=== PATIENT | female | born 1930 | race Caucasian/White ===

== ENCOUNTER 2016-07-08 06:29 | Inpatient (IN) | payer MEDICARE ==
[~2016-07-08] VITALS: Ht 157.5 cm; Wt 54.9 kg
[~2016-07-08 06:29] MED LIST: AMLO5TAB4 PO; ASPI-252 PO; CHOL10003 PO; LOSA100T6 PO; LOSA50TA6 PO; METO25TA4 PO; TRAM50TA PO; Tizanidine Hcl PO
[2016-07-08 06:55] LABS: BILIRUBIN,URINE NEGATIVE (NEG); GLUCOSE,URINE NEGATIVE (NEG); NITRITE,URINE NEGATIVE (NEG); PH,URINE 7.5; PROTEIN,URINE NEGATIVE (NEG-TRACE); UROBILINOGEN,URINE 0.2 mg/dL (0.2 mg/dL)
[2016-07-08 06:58] LABS: BASO # 0.1 x10^3/uL (0.0-0.2); BASO % 1 % (0-3); EOS % 4 % (0-3); HEMATOCRIT 40.3 % (36.0-47.0); HEMOGLOBIN 13.1 g/dL (12.0-15.5); LYMPH # 1.9 x10^3/uL (1.0-4.8); LYMPH % 22 % (24-48); MEAN CORPUSCULAR HEMOGLOBIN 28 pg (25-35); MEAN CORPUSCULAR HGB CONC 33 g/dL (31-37); MEAN CORPUSCULAR VOLUME 88 fL (79-100); MONO % 8 % (0-9); NEUT % 65 % (31-73); PLATELET COUNT 215 x10^3/uL (140-400); RED BLOOD COUNT 4.61 x10^6/uL (3.50-5.40); RED CELL DISTRIBUTION WIDTH 14.6 % (11.5-14.5); WHITE BLOOD COUNT 8.7 x10^3/uL (4.0-11.0)
[2016-07-08] MEDS ORDERED: DIAZEPAM 5 MG TABLET PO ONE (07:00)
[2016-07-08] MEDS ORDERED: IV NORMAL SALINE 500ML BAG 500 ML IV ONE (07:00)
[2016-07-08] MEDS ORDERED: ONDANSETRON PF 4 MG/2 ML VIAL. IV ONE (07:00)
[2016-07-08 07:06] LABS: CALCIUM 9.7 mg/dL (8.5-10.1); CREATININE 0.9 mg/dL (0.6-1.0); GFR 59.5; POTASSIUM 3.9 mmol/L (3.5-5.1)
[2016-07-08 07:10] LABS: ALBUMIN 3.8 g/dL (3.4-5.0); ALBUMIN/GLOBULIN RATIO 1.3 (1.0-1.7); TOTAL BILIRUBIN 0.7 mg/dL (0.2-1.0); TOTAL PROTEIN 6.7 g/dL (6.4-8.2)
[2016-07-08 07:20] LABS: BACTERIA,URINE 0 /HPF (0-FEW); RBC,URINE 0 /HPF (0-2); SQUAMOUS EPITHELIAL CELL,UR FEW /LPF; WBC,URINE 0 /HPF (0-4)
--- NOTE | 2016-07-08 07:53 | RAD ---
CT of the head without contrast, 07/08/2016: History: Dizziness. Comparison is made to a study from 09/09/2015. A radiopaque device implanted in the scalp in the left temporal/occipital region is reportedly a cochlear implant. Associated artifacts degrade image quality in this region. There is also motion artifact present. There is mild cerebral atrophy. There are moderate patchy lucencies in the deep white matter bilaterally compatible with chronic ischemic change. The ventricles are within normal limits in size. There is no shift of the midline structures. There is no evidence of acute intracranial hemorrhage or mass effect. There is calcific plaquing of the distal internal carotid and vertebral arteries. IMPRESSION: 1. Chronic findings as described above. 2. No acute intracranial abnormality is detected. PQRS Compliance Statement: One or more of the following individualized dose reduction techniques were utilized for this examination: 1. Automated exposure control 2. Adjustment of the mA and/or kV according to patient size 3. Use of iterative reconstruction technique
--- NOTE | 2016-07-08 07:58 | EKG ---
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
--- NOTE | 2016-07-08 10:10 | PHYS DOC ---
Past Medical History Past Medical History: Cancer, High Cholesterol, Hypertension, Other Additional Past Medical Histor: breast cancer Past Surgical History: Other Additional Past Surgical Histo: cochlear implant,lt breast lumpectomy,ectopic Alcohol Use: None Drug Use: None Adult General Chief Complaint Chief Complaint: NAUSEA/VOMITING/DIARRHA HPI HPI 85-year-old female presents with several hour history of severe dizziness. She states any time she moves her head she becomes nauseous. She states she's vomited several times. She denies any headache or lateralizing neurologic weakness. She states she's never had this problem before. She does state that she saw her family doctor approximately one week ago. [] Review of Systems Review of Systems Constitutional: Denies fever or chills [] Eyes: Denies change in visual acuity, redness, or eye pain [] HENT: Denies nasal congestion or sore throat [] Respiratory: Denies cough or shortness of breath [] Cardiovascular: No additional information not addressed in HPI [] GI: Denies abdominal pain, nausea, vomiting, bloody stools or diarrhea [] : Denies dysuria or hematuria [] Musculoskeletal: Denies back pain or joint pain [] Integument: Denies rash or skin lesions [] Neurologic: Per history of present illness [] Endocrine: Denies polyuria or polydipsia [] Current Medications Current Medications Current Medications Medications (Trade) Dose Ordered Sig/Phani Start Time Stop Time Status Last Admin Dose Admin Diazepam (Valium) 2.5 mg 1X ONCE 07/08/16 07:00 07/08/16 07:01 DC 07/08/16 07:01 2.5 MG Meclizine HCl (Antivert) 25 mg Q8HRS PRN 07/08/16 10:15 UNV Ondansetron HCl (Zofran) 4 mg 1X ONCE 07/08/16 07:00 07/08/16 07:01 DC 07/08/16 07:01 4 MG Ondansetron HCl 4 mg 4 mg PRN Q8HRS PRN 07/08/16 10:15 07/09/16 10:14 UNV Sodium Chloride (Iv Sodium Chloride 0.9% 500ml Bag) 500 ml @ 500 mls/hr 1X ONCE 07/08/16 07:00 07/08/16 07:59 DC 07/08/16 07:01 500 MLS/HR Sodium Chloride (Iv Sodium Chloride 0.9% 1000ml Bag) 1,000 ml @ 125 mls/hr Q8H 07/08/16 10:02 07/09/16 10:01 UNV Allergies Allergies Allergies Coded Allergies Type Severity Reaction Last Updated Verified codeine Allergy Intermediate 09/11/15 Yes Physical Exam Physical Exam Constitutional: Well developed, well nourished, no acute distress, non-toxic appearance. [] HENT: Normocephalic, atraumatic, bilateral external ears normal, oropharynx moist, no oral exudates, nose normal. [] Eyes: PERRLA, EOMI, conjunctiva normal, no discharge. [] Neck: Normal range of motion, no tenderness, supple, no stridor. [] Cardiovascular:Heart rate regular rhythm, no murmur [] Lungs & Thorax: Bilateral breath sounds clear to auscultation [] Abdomen: Bowel sounds normal, soft, no tenderness, no masses, no pulsatile masses. [] Skin: Warm, dry, no erythema, no rash. [] Back: No tenderness, no CVA tenderness. [] Extremities: No tenderness, no cyanosis, no clubbing, ROM intact, no edema. [] Neurologic: Alert and oriented X 3, normal motor function, normal sensory function, no focal deficits noted. Positive Gallito-Hallpike [] Psychologic: Affect normal, judgement normal, mood normal. [] Current Patient Data Vital Signs Vital Signs Date Time Temp Pulse Resp B/P Pulse Ox O2 Delivery O2 Flow Rate FiO2 07/08/16 07:00 72 26 170/74 97 Room Air 07/08/16 06:48 97.8 97.8 Lab Values Laboratory Tests Test 07/08/16 06:35 07/08/16 06:42 Urine Collection Type Unknown Urine Color Yellow Urine Clarity Clear Urine pH 7.5 Urine Specific [place] <=1.005 Urine Protein Negativemg/dL (NEG-TRACE) Urine Glucose (UA) Negativemg/dL (NEG) Urine Ketones (Stick) Negativemg/dL (NEG) Urine Blood Negative (NEG) Urine Nitrite Negative (NEG) Urine Bilirubin Negative (NEG) Urine Urobilinogen Dipstick 0.2mg/dL (0.2 mg/dL) Urine Leukocyte Esterase Small (NEG) Urine RBC 0/HPF (0-2) Urine WBC 0/HPF (0-4) Urine Squamous Epithelial Cells Few/LPF Urine Bacteria 0/HPF (0-FEW) White Blood Count 8.7x10^3/uL (4.0-11.0) Red Blood Count 4.61x10^6/uL (3.50-5.40) Hemoglobin 13.1g/dL (12.0-15.5) Hematocrit 40.3% (36.0-47.0) Mean Corpuscular Volume 88fL (79-100) Mean Corpuscular Hemoglobin 28pg (25-35) Mean Corpuscular Hemoglobin Concent 33g/dL (31-37) Red Cell Distribution Width 14.6% (11.5-14.5) H Platelet Count 215x10^3/uL (140-400) Neutrophils (%) (Auto) 65% (31-73) Lymphocytes (%) (Auto) 22% (24-48) L Monocytes (%) (Auto) 8% (0-9) Eosinophils (%) (Auto) 4% (0-3) H Basophils (%) (Auto) 1% (0-3) Neutrophils # (Auto) 5.6x10^3uL (1.8-7.7) Lymphocytes # (Auto) 1.9x10^3/uL (1.0-4.8) Monocytes # (Auto) 0.7x10^3/uL (0.0-1.1) Eosinophils # (Auto) 0.3x10^3/uL (0.0-0.7) Basophils # (Auto) 0.1x10^3/uL (0.0-0.2) Sodium Level 139mmol/L (136-145) Potassium Level 3.9mmol/L (3.5-5.1) Chloride Level 101mmol/L (98-107) Carbon Dioxide Level 28mmol/L (21-32) Anion Gap 10 (6-14) Blood Urea Nitrogen 21mg/dL (7-20) H Creatinine 0.9mg/dL (0.6-1.0) Estimated GFR (Cockcroft-Gault) 59.5 BUN/Creatinine Ratio 23 (6-20) H Glucose Level 123mg/dL (70-99) H Calcium Level 9.7mg/dL (8.5-10.1) Total Bilirubin 0.7mg/dL (0.2-1.0) Aspartate Amino Transferase (AST) 16U/L (15-37) Alanine Aminotransferase (ALT) 18U/L (14-59) Alkaline Phosphatase 100U/L (46-116) Troponin I Quantitative < 0.017ng/mL (0.000-0.055) Total Protein 6.7g/dL (6.4-8.2) Albumin 3.8g/dL (3.4-5.0) Albumin/Globulin Ratio 1.3 (1.0-1.7) Laboratory Tests 07/08/16 06:42 Laboratory Tests 07/08/16 06:42 EKG EKG [] Interpretation Time: EKG: Normal sinus rhythm rate of [address]-T changes Radiology/Procedures Radiology/Procedures [] Impressions: PROCEDURE: HEAD WO CONTRAST CT of the head without contrast, 07/08/2016: History: Dizziness. Comparison is made to a study from 09/09/2015. A radiopaque device implanted in the scalp in the left temporal/occipital region is reportedly a cochlear implant. Associated artifacts degrade image quality in this region. There is also motion artifact present. There is mild cerebral atrophy. There are moderate patchy lucencies in the deep white matter bilaterally compatible with chronic ischemic change. The ventricles are within normal limits in size. There is no shift of the midline structures. There is no evidence of acute intracranial hemorrhage or mass effect. There is calcific plaquing of the distal internal carotid and vertebral arteries. IMPRESSION: 1. Chronic findings as described above. 2. No acute intracranial abnormality is detected. Course & Med Decision Making Course & Med Decision Making Pertinent Labs and Imaging studies reviewed. (See chart for details) [ED course: Evaluation reveals an 85-year-old female with likely vertiginous type symptoms. She had a CT scan that did not show any acute stroke. She was given IV fluids, meclizine and Valium during her stay in the department this did help alleviate her symptoms however she remained symptomatic with any head movement. At this point I feel like it's in the patient's best interest to be monitored in the hospital. I spoke with Dr. To who agrees and will except for admission.] Dragon Disclaimer Dragon Disclaimer This electronic medical record was generated, in whole or in part, using a voice recognition dictation system. Departure Departure Impression: Primary Impression: Vertigo Disposition: ADMITTED INPATIENT Admitting Physician: Tracy To Condition: IMPROVED Referrals: TRACY TO MD (PCP) GEE LOVELACE DO Jul 08, 2016 10:10
[2016-07-08] MEDS ORDERED: MECLIZINE HCL 12.5 MG TABLET. PO PRN (10:15)
[2016-07-08] MEDS ORDERED: ONDANSETRON PF 4 MG/2 ML VIAL. IV PRN (10:15)
--- NOTE | 2016-07-08 10:22 | ACF ---
Admit Criteria Forms Admit Criteria Forms Admit Criteria Forms VERTIGO Clinical Indications for Admission to Inpatient Care (Place 'X' for any and all applicable criteria): Admission is indicated for ANY ONE of the following(1)(2)(3)(4): [ ]I. Acute bacterial labyrinthitis [ ]II. A suspected etiology that requires admission for treatment [X]III. Inpatient admission required rather than observation care (Also use Vertigo: Observation Care as appropriate) because of ANY ONE of the following: [ ]a) Hemodynamic instability that is severe or persistent [X]b) Signs or symptoms that are severe or persistent (eg, vomiting , orthostasis, inability to ambulate) [ ]c) Cardiac arrhythmias of immediate concern [ ]d) Severe (new) neurologic findings requiring inpatient care as indicated by ANY ONE of the following(6)(7) [ ]1) Cerebral bleeding, ischemia, or vasospasm(8)(9) [ ]2) Increased intracranial pressure or hydrocephalus(10) (11)(12) [ ]3) Papilledema [ ]4) Cerebral edema [ ]5) Mass effect on CT scan [ ]e) Vomiting that is severe or persistent [ ]f) Continuous IV infusion of anticoagulation, platelet inhibitor, vasoactive, or antiarrhythmic medication [ ]g) Cerebral bleeding, hydrocephalus, or vasospasm monitoring(14) [ ]h) Increased intracranial pressure or cerebral edema monitoring [ ]i) Other condition, treatment or monitoring requiring inpatient admission [ ]IV. Cerebellar, brainstem, or cerebral ischemia or hemorrhage(5) Extended stay beyond goal length of stay may be needed for evaluating and treating a specific cause of dizziness, including(26): [ ]a) Head injury (27) ( Also use Traumatic Brain Injury, Nonsurgical Treatment guideline) [ ]b) New-onset vertebrobasilar vascular insufficiency(23) [ ]c) Acute Meniere disease with intractable symptoms [ ]d) Cardiac arrhythmias or conduction defects [ ]e) Acute neurologic event causing dizziness [ ]f) Myocardial ischemia [ ]g) Acute bacterial labyrinthitis(1) [ ]h) Severe acute vestibular neuronitis(18) The original [facility] content created by [employer] has been revised. The portions of the content which have been revised are identified through the use of italic text or in bold, and [employer] has neither reviewed nor approved the modified material. All other unmodified content is copyright [facility]. Please see references footnoted in the original [facility] edition 2016 URBANO PARKS Jul 08, 2016 10:22
[2016-07-08] MEDS: IV NORMAL SALINE 1000ML BAG 1,000 ML IV SCH ×2 (11:06→21:46)
[2016-07-08] MEDS ORDERED: AMLO10TA2 PO (16:28)
[2016-07-08] MEDS ORDERED: HYDR-2868 PO (16:28)
[2016-07-08] MEDS ORDERED: METO25TA4 PO (16:28)
[2016-07-08] MEDS ORDERED: TRAMADOL 50 MG TABLET. PO PRN (16:30)
[2016-07-08 17:09] VITALS: BP 156/57
[2016-07-08 19:00] VITALS: BP 145/56
[2016-07-08] MEDS: METOPROLOL TART IMMED RELEASE 25 MG TABLET PO SCH (21:52)
[2016-07-08] MEDS: HYDRALAZINE 25 MG TABLET PO SCH (21:52)
[2016-07-08 23:46] VITALS: BP 146/61
[2016-07-09] MEDS: IV NORMAL SALINE 1000ML BAG 1,000 ML IV SCH (02:02)
[2016-07-09 06:13] LABS: BASO # 0.1 x10^3/uL (0.0-0.2); BASO % 1 % (0-3); EOS % 5 % (0-3); HEMATOCRIT 34.5 % (36.0-47.0); HEMOGLOBIN 11.3 g/dL (12.0-15.5); LYMPH # 1.7 x10^3/uL (1.0-4.8); LYMPH % 24 % (24-48); MEAN CORPUSCULAR HEMOGLOBIN 29 pg (25-35); MEAN CORPUSCULAR HGB CONC 33 g/dL (31-37); MEAN CORPUSCULAR VOLUME 88 fL (79-100); MONO % 9 % (0-9); NEUT % 62 % (31-73); PLATELET COUNT 205 x10^3/uL (140-400); RED BLOOD COUNT 3.93 x10^6/uL (3.50-5.40); RED CELL DISTRIBUTION WIDTH 14.9 % (11.5-14.5)
[2016-07-09 06:23] LABS: ALBUMIN 2.8 g/dL (3.4-5.0); CALCIUM 8.9 mg/dL (8.5-10.1); CREATININE 0.8 mg/dL (0.6-1.0); GFR 68.2; POTASSIUM 3.8 mmol/L (3.5-5.1); TOTAL BILIRUBIN 0.7 mg/dL (0.2-1.0); TOTAL PROTEIN 5.7 g/dL (6.4-8.2)
[2016-07-09 07:00] VITALS: BP 141/68
[2016-07-09] MEDS ORDERED: ASPIRIN ENTERIC COATED 325 MG TABLET.DR. PO SCH (08:00)
[2016-07-09 08:37] VITALS: BP 141/68
[2016-07-09] MEDS: METOPROLOL TART IMMED RELEASE 25 MG TABLET PO SCH (08:37)
[2016-07-09] MEDS: HYDRALAZINE 25 MG TABLET PO SCH (08:37)
[2016-07-09] MEDS ORDERED: AMLODIPINE BESYLATE 10 MG TABLET PO SCH (09:00)
[2016-07-09] MEDS ORDERED: LOSARTAN POTASSIUM 50 MG TABLET. PO SCH (09:00)
[2016-07-09] MEDS ORDERED: CHOLECALCIFEROL (VITAMIN D3) 1,000 UNIT TABLET PO SCH (09:00)
--- NOTE | 2016-07-09 09:01 | PDOC ---
PROGRESS NOTES Subjective Subjective Patient reports vertigo seems to have resolved. No nausea. Feels able to go home. Objective Objective Vital Signs Date Time Temp Pulse Resp B/P Pulse Ox O2 Delivery O2 Flow Rate FiO2 07/09/16 08:37 56 141/68 07/09/16 07:00 97.7 18 98 Room Air 97.7 Intake and Output 07/09/16 07:00 Intake Total 120 ml Output Total 0 ml Balance 120 ml Intake Oral 120 ml Output Urine Total 0 ml # Voids 1 Physical Exam Abdomen: Normal bowel sounds, Soft, No tenderness Heart: Regular rate Extremities: No edema General: Alert, Oriented X3, No acute distress HEENT: PERRLA, EOMI Lungs: Clear to auscultation Assessment Assessment Problems Medical Problems: (1) Vertigo Status: Acute Plan Plan of Care 1. Vertigo - appears to have resolved with good hydration. Home today, patient already has Meclizine available at home. 2. HTN - stable, continue her usual medications. 3. chronic anxiety - just started on Lexapro for tx of this. Comment Review of Relevant I have reviewed the following items silver (where applicable) has been applied. Labs Laboratory Tests Test 07/08/16 06:35 07/08/16 06:42 07/09/16 05:20 Urine Collection Type Unknown Urine Color Yellow Urine Clarity Clear Urine pH 7.5 Urine Specific [place] <=1.005 Urine Protein Negativemg/dL (NEG-TRACE) Urine Glucose (UA) Negativemg/dL (NEG) Urine Ketones (Stick) Negativemg/dL (NEG) Urine Blood Negative (NEG) Urine Nitrite Negative (NEG) Urine Bilirubin Negative (NEG) Urine Urobilinogen Dipstick 0.2mg/dL (0.2 mg/dL) Urine Leukocyte Esterase Small (NEG) Urine RBC 0/HPF (0-2) Urine WBC 0/HPF (0-4) Urine Squamous Epithelial Cells Few/LPF Urine Bacteria 0/HPF (0-FEW) White Blood Count 8.7x10^3/uL (4.0-11.0) 7.0x10^3/uL (4.0-11.0) Red Blood Count 4.61x10^6/uL (3.50-5.40) 3.93x10^6/uL (3.50-5.40) Hemoglobin 13.1g/dL (12.0-15.5) 11.3g/dL (12.0-15.5) Hematocrit 40.3% (36.0-47.0) 34.5% (36.0-47.0) Mean Corpuscular Volume 88fL (79-100) 88fL (79-100) Mean Corpuscular Hemoglobin 28pg (25-35) 29pg (25-35) Mean Corpuscular Hemoglobin Concent 33g/dL (31-37) 33g/dL (31-37) Red Cell Distribution Width 14.6% (11.5-14.5) 14.9% (11.5-14.5) Platelet Count 215x10^3/uL (140-400) 205x10^3/uL (140-400) Neutrophils (%) (Auto) 65% (31-73) 62% (31-73) Lymphocytes (%) (Auto) 22% (24-48) 24% (24-48) Monocytes (%) (Auto) 8% (0-9) 9% (0-9) Eosinophils (%) (Auto) 4% (0-3) 5% (0-3) Basophils (%) (Auto) 1% (0-3) 1% (0-3) Neutrophils # (Auto) 5.6x10^3uL (1.8-7.7) 4.3x10^3uL (1.8-7.7) Lymphocytes # (Auto) 1.9x10^3/uL (1.0-4.8) 1.7x10^3/uL (1.0-4.8) Monocytes # (Auto) 0.7x10^3/uL (0.0-1.1) 0.6x10^3/uL (0.0-1.1) Eosinophils # (Auto) 0.3x10^3/uL (0.0-0.7) 0.4x10^3/uL (0.0-0.7) Basophils # (Auto) 0.1x10^3/uL (0.0-0.2) 0.1x10^3/uL (0.0-0.2) Sodium Level 139mmol/L (136-145) 140mmol/L (136-145) Potassium Level 3.9mmol/L (3.5-5.1) 3.8mmol/L (3.5-5.1) Chloride Level 101mmol/L (98-107) 107mmol/L (98-107) Carbon Dioxide Level 28mmol/L (21-32) 26mmol/L (21-32) Anion Gap 10 (6-14) 7 (6-14) Blood Urea Nitrogen 21mg/dL (7-20) 15mg/dL (7-20) Creatinine 0.9mg/dL (0.6-1.0) 0.8mg/dL (0.6-1.0) Estimated GFR (Cockcroft-Gault) 59.5 68.2 BUN/Creatinine Ratio 23 (6-20) 19 (6-20) Glucose Level 123mg/dL (70-99) 87mg/dL (70-99) Calcium Level 9.7mg/dL (8.5-10.1) 8.9mg/dL (8.5-10.1) Total Bilirubin 0.7mg/dL (0.2-1.0) 0.7mg/dL (0.2-1.0) Aspartate Amino Transf (AST/SGOT) 16U/L (15-37) 16U/L (15-37) Alanine Aminotransferase (ALT/SGPT) 18U/L (14-59) 14U/L (14-59) Alkaline Phosphatase 100U/L (46-116) 68U/L (46-116) Troponin I Quantitative < 0.017ng/mL (0.000-0.055) Total Protein 6.7g/dL (6.4-8.2) 5.7g/dL (6.4-8.2) Albumin 3.8g/dL (3.4-5.0) 2.8g/dL (3.4-5.0) Albumin/Globulin Ratio 1.3 (1.0-1.7) 1.0 (1.0-1.7) Laboratory Tests Test 07/09/16 05:20 White Blood Count 7.0x10^3/uL (4.0-11.0) Red Blood Count 3.93x10^6/uL (3.50-5.40) Hemoglobin 11.3g/dL (12.0-15.5) Hematocrit 34.5% (36.0-47.0) Mean Corpuscular Volume 88fL (79-100) Mean Corpuscular Hemoglobin 29pg (25-35) Mean Corpuscular Hemoglobin Concent 33g/dL (31-37) Red Cell Distribution Width 14.9% (11.5-14.5) Platelet Count 205x10^3/uL (140-400) Neutrophils (%) (Auto) 62% (31-73) Lymphocytes (%) (Auto) 24% (24-48) Monocytes (%) (Auto) 9% (0-9) Eosinophils (%) (Auto) 5% (0-3) Basophils (%) (Auto) 1% (0-3) Neutrophils # (Auto) 4.3x10^3uL (1.8-7.7) Lymphocytes # (Auto) 1.7x10^3/uL (1.0-4.8) Monocytes # (Auto) 0.6x10^3/uL (0.0-1.1) Eosinophils # (Auto) 0.4x10^3/uL (0.0-0.7) Basophils # (Auto) 0.1x10^3/uL (0.0-0.2) Sodium Level 140mmol/L (136-145) Potassium Level 3.8mmol/L (3.5-5.1) Chloride Level 107mmol/L (98-107) Carbon Dioxide Level 26mmol/L (21-32) Anion Gap 7 (6-14) Blood Urea Nitrogen 15mg/dL (7-20) Creatinine 0.8mg/dL (0.6-1.0) Estimated GFR (Cockcroft-Gault) 68.2 BUN/Creatinine Ratio 19 (6-20) Glucose Level 87mg/dL (70-99) Calcium Level 8.9mg/dL (8.5-10.1) Total Bilirubin 0.7mg/dL (0.2-1.0) Aspartate Amino Transf (AST/SGOT) 16U/L (15-37) Alanine Aminotransferase (ALT/SGPT) 14U/L (14-59) Alkaline Phosphatase 68U/L (46-116) Total Protein 5.7g/dL (6.4-8.2) Albumin 2.8g/dL (3.4-5.0) Albumin/Globulin Ratio 1.0 (1.0-1.7) Medications Current Medications Sodium Chloride (Iv Sodium Chloride 0.9% 500ml Bag) 500 ml @ 500 mls/hr 1X ONCE IV Last administered on 07/08/16 07:01; Start 07/08/16 at 07:00; Stop at 07:59; Status DC Ondansetron HCl (Zofran) 4 mg 1X ONCE IV Last administered on 07/08/16 07:01 ; Start 07/08/16 at 07:00; Stop 07/08/16 at 07:01; Status DC Diazepam (Valium) 2.5 mg 1X ONCE PO Last administered on 07/08/16 07:01; Start 07/08/16 at 07:00; Stop 07/08/16 at 07:01; Status DC Ondansetron HCl 4 mg 4 mg PRN Q8HRS PRN IV NAUSEA/VOMITING; Start 07/08/16 at 10:15; Stop 07/09/16 at 10:14 Sodium Chloride (Iv Sodium Chloride 0.9% 1000ml Bag) 1,000 ml @ 125 mls/hr Q8H IV Last administered on 07/08/16 21:46; Start 07/08/16 at 10:02; Stop at 10:01 Meclizine HCl (Antivert) 25 mg PRN Q8HRS PRN PO dizziness; Start 07/08/16 at 10 :15 Aspirin (Ecotrin) 325 mg DAILYWBKFT PO Last administered on 07/09/16 08:37; Start 07/09/16 at 08:00 Vitamin D (Vitamin D3) 1,000 unit DAILY PO Last administered on 07/09/16 08:36 ; Start 07/09/16 at 09:00 Losartan Potassium (Cozaar) 100 mg DAILY PO Last administered on 07/09/16 08: 36; Start 07/09/16 at 09:00 Amlodipine Besylate (Norvasc) 10 mg DAILY PO Last administered on 07/09/16 08: 37; Start 07/09/16 at 09:00 Hydralazine HCl (Apresoline) 25 mg BID PO Last administered on 07/09/16 08:37 ; Start 07/08/16 at 21:00 Metoprolol Tartrate (Lopressor) 25 mg BID PO Last administered on 07/09/16 08: 37; Start 07/08/16 at 21:00 Tramadol HCl (Ultram) 50 mg PRN Q6HRS PRN PO PAIN Last administered on 21:52; Start 07/08/16 at 16:30 Active Scripts Active Amlodipine Besylate 10 Mg Tablet 10 Mg PO DAILY Hydralazine Hcl 25 Mg Tablet 1 Tab PO BID Metoprolol Tartrate 25 Mg Tablet 1 Tab PO BID Losartan Potassium 100 Mg Tablet 100 Mg PO DAILY Ecotrin (Aspirin) 325 Mg Tablet.dr 325 Mg PO DAILYWBKFT Reported Vitamin D3 (Cholecalciferol (Vitamin D3)) 1,000 Unit Tablet 1 Tab PO DAILY Tramadol Hcl 50 Mg Tablet 50-100 Mg PO Q4-6HRS PRN Vitals/I & O Vital Sign - Last 24 Hours 07/08/16 07/08/16 07/08/16 07/08/16 09:38 10:38 11:38 12:20 Pulse 62 62 60 Resp 15 15 15 B/P 154/70 145/64 142/66 132/60 Pulse Ox 93 95 94 O2 Delivery Room Air Room Air Room Air 07/08/16 07/08/16 07/08/16 07/08/16 13:20 14:20 15:20 17:09 Temp 97.9 97.9 Pulse 68 64 64 67 Resp 22 17 17 18 B/P 123/6 161/74 139/65 156/57 Pulse Ox 98 98 94 99 O2 Delivery Room Air Room Air Room Air Room Air 07/08/16 07/08/16 07/08/16 07/08/16 19:00 20:00 21:52 21:52 Temp 97.0 97.0 Pulse 76 76 76 Resp 18 B/P 145/56 145/56 145/56 Pulse Ox 96 O2 Delivery Room Air Room Air 07/08/16 07/08/16 07/08/16 07/09/16 21:52 23:09 23:46 02:55 Temp 97.0 97.0 Pulse 67 Resp 18 18 18 B/P 146/61 Pulse Ox 94 O2 Delivery Room Air Room Air Room Air Room Air 2/17/17 07/09/16 07/09/16 07/09/16 07:00 08:36 08:37 08:37 Temp 97.7 97.7 Pulse 56 56 56 56 Resp 18 B/P 141/68 141/68 141/68 141/68 Pulse Ox 98 O2 Delivery Room Air 07/09/16 08:37 Pulse 56 B/P 141/68 Intake and Output 07/08/16 07/08/16 07/09/16 15:00 23:00 07:00 Intake Total 120 ml Output Total 0 ml Balance 120 ml SAGAR JOEL MD Jul 09, 2016 09:01
[2016-07-09] MEDS ORDERED: MECL12.52 PO (09:09)
--- NOTE | 2016-07-09 09:41 | DS ---
DATE OF DISCHARGE: 07/09/2016 HISTORY AND PHYSICAL AND 23-HOUR DISCHARGE SUMMARY CHIEF COMPLAINT: Vertigo. HISTORY OF PRESENT ILLNESS: The patient is an 85-year-old female, who presented to the Emergency Room with the above complaint. She reported the sudden onset of vertigo upon awakening on the day of admission. She felt that things were spinning and she became quite nauseous. She had some emesis at home prior to presenting to the Emergency Room. She did not experience a headache or any localizing weakness with her vertigo. Initial evaluation in the Emergency Room included a CT of the head without contrast, which was unremarkable. Lab showed a mild amount of prerenal azotemia, but was otherwise within normal limits. The patient's symptoms persisted and she was admitted for further treatment. PAST MEDICAL HISTORY: Hypertension, hearing loss, hyperlipidemia, chronic anxiety. PAST SURGICAL HISTORY: Lumpectomy for breast cancer, treatment of tubal , left knee replacement, cataract removal. ALLERGIES: THE PATIENT IS ALLERGIC TO CODEINE. HOME MEDICATIONS: Amlodipine 10 mg daily, aspirin 325 mg daily, vitamin D daily, hydralazine 25 mg b.i.d., losartan 100 mg daily, metoprolol tartrate 25 mg b.i.d., tramadol 50 mg p.r.n. The patient was also just started on Lexapro 10 mg daily. FAMILY HISTORY: Noncontributory. SOCIAL HISTORY: The patient is and lives at home with her . She does not smoke cigarettes. REVIEW OF SYSTEMS: The patient denies fever or chills. She denies other recent episodes of vertigo, but has had this in the past and it was treated with meclizine. She denies a headache or sinus pain. She denies cough or shortness of breath. She denies chest pain or palpitations. Her nausea has resolved and she denies abdominal pain. She took one dose of the Lexapro that she was started on last week. She had some nausea and funny feelings with it, so did not take any other doses. She continues to feel anxious. PHYSICAL EXAMINATION: GENERAL: The patient is alert and oriented x 3, resting comfortably in bed, in no acute distress. HEENT: PERRL, EOMI. Sclerae clear. Oropharynx: Mucous membranes are moist. NECK: Supple, without lymphadenopathy. LUNGS: Clear to auscultation. CARDIOVASCULAR: Regular rhythm without murmur. ABDOMEN: Soft, nontender, normoactive bowel sounds are present. EXTREMITIES: Without edema. HOSPITAL COURSE: The patient has been on bed rest with IV fluids since admission. She reports that her vertigo resolved yesterday and has not recurred. She has not even taken any of the p.r.n. meclizine that was ordered for her. She is taking her meals with a good appetite and no nausea. She will be discharged to home today. She already has meclizine at home available to her and was encouraged to take this if her symptoms recur. Her anxiety does continue to be troublesome for her. She was encouraged to try resuming the Lexapro and to take it after dinner on a full stomach to see if she is better able to tolerate it. FINAL DIAGNOSES: 1. Vertigo. 2. Hypertension. 3. Chronic anxiety. DISCHARGE MEDICATIONS: Remain the same as at admission with the addition of meclizine 25 mg p.o. q. 8 hours p.r.n. vertigo. FOLLOWUP: With Dr. To as needed. SAGAR TO MD DR: JORGE/justina JOB#: [id number] / [id number] ARETHA
== END 2016-07-09 11:18 | disposition home or self-care (01) | DRG 149 ==
LOC: ER 06:29 → ED HOLD 10:04 → 5 SOUTH 15:52
PROVIDERS: ADMIT Family Medicine; ATTEND Family Medicine
DX: R42 Dizziness and giddiness (principal); E78.00 Pure hypercholesterolemia, unspecified; E78.5 Hyperlipidemia, unspecified; F41.9 Anxiety disorder, unspecified; H91.90 Unspecified hearing loss, unspecified ear; I10 Essential (primary) hypertension; Z96.652 Presence of left artificial knee joint; Z85.3 Personal history of malignant neoplasm of breast; Z88.5 Allergy status to narcotic agent; Z98.49 Cataract extraction status, unspecified eye; Z79.899 Other long term (current) drug therapy
CPT/HCPCS: 36415; 70450; 80053; 81001; 84484; 85027; 87086; 93005; 96374; J2405; J7030; J7040; 99285-25

== ENCOUNTER → 2016-08-27 | Outpatient (CLI) | payer MEDICARE ==
[~2016-08-27] MED LIST changes: +AMLO10TA2 PO; +HYDR-2868 PO; +MECL12.52 PO
--- NOTE | 2016-08-27 12:49 | CARD ---
APPROVED REPORT EXAM: Two-dimensional and M-mode echocardiogram with Doppler and color Doppler. Other Information Quality : GoodHR: 55bpm Rhythm : Bradycardia INDICATION Atrial Fibrillation RISK FACTORS Hypertension 2D DIMENSIONS RVDd2.2 (2.9-3.5cm)Left Atrium(2D)3.8 (1.6-4.0cm) IVSd1.0 (0.7-1.1cm)Aortic Root(2D)2.7 (2.0-3.7cm) LVDd4.8 (3.9-5.9cm)LVOT Diameter2.2 (1.8-2.4cm) PWd0.9 (0.7-1.1cm)LVDs2.7 (2.5-4.0cm) FS (%) 42.4 %SV77.6 ml Aortic Valve AoV Peak Tarik.135.7cm/sAoV VTI38.4cm AO Peak GR.7.4mmHgLVOT Peak Tarik.90.5cm/s AO Mean GR.4mmHgAVA (VMAX)2.47cm2 Mitral Valve MV E Rcmtbhnq535.2cm/sMV E Peak Gr.4mmHg MV DECEL [id number] A Pstfsnmr34.7cm/s MV E Mean Gr.1mmHgE/A Ratio2.1 MV A [id number] Pulmonary Valve PV Peak Jycopill40.5cm/s Tricuspid Valve TR P. Itepdflo667lt/sTR Peak Gr.36mmHg Pulmonary Vein S1 Qiwrqfzq68.1cm/sD2 Rxvmqfri57.6cm/s PVa hbkxwxqq24snub LEFT VENTRICLE The left ventricle is normal size. There is normal left ventricular wall thickness. The left ventricu lar systolic function is normal and the ejection fraction is within normal range. The Ejection Fracti on is 60-65%. There is normal LV segmental wall motion. Transmitral Doppler flow pattern is Grade II- reversible restrictive diastolic dysfunction. RIGHT VENTRICLE The right ventricle is normal size. There is normal right ventricular wall thickness. The right ventr icular systolic function is normal. ATRIA The left atrium is mildly dilated. The right atrium is mildly dilated. The interatrial septum is inta ct with no evidence for an atrial septal defect or patent foramen ovale as noted on 2-D or Doppler im aging. AORTIC VALVE The aortic valve is mildly sclerotic. The aortic valve is trileaflet. Doppler and Color Flow revealed trace aortic regurgitation. There is no significant aortic valvular stenosis. MITRAL VALVE Mitral annular calcification is moderate. The mitral valve leaflets are thickened. There is no eviden ce of mitral valve prolapse. There is no mitral valve stenosis. Doppler and Color Flow revealed mild mitral regurgitation. TRICUSPID VALVE Doppler and Color Flow revealed mild tricuspid regurgitation. The pulmonary artery systolic pressure is estimated at 39 mmHg. PULMONIC VALVE Doppler and Color Flow revealed mild pulmonic valvular regurgitation. There is no pulmonic valvular s tenosis. GREAT VESSELS The aortic root is normal in size. The ascending aorta is normal in size. The pulmonary artery is nor mal. The IVC is normal in size and collapses >50% with inspiration. PERICARDIAL EFFUSION There is no evidence of significant pericardial effusion. Critical Notification Critical Value: No <Conclusion> The left ventricle is normal size. The left ventricular systolic function is normal and the ejection fraction is within normal range. The Ejection Fraction is 60-65%. There is normal LV segmental wall motion. There is no significant aortic valvular stenosis. Doppler and Color Flow revealed trace aortic regurgitation. Doppler and Color Flow revealed mild mitral regurgitation. Doppler and Color Flow revealed mild tricuspid regurgitation. The pulmonary artery systolic pressure is estimated at 39 mmHg.
== END | disposition home or self-care (01) ==
LOC: ECHO 09:38
PROVIDERS: ATTEND Internal Medicine Cardiovascular Disease
DX: I48.91 Unspecified atrial fibrillation (principal); R60.0 Localized edema; I08.3 Combined rheumatic disorders of mitral, aortic and tricuspid valves
CPT/HCPCS: 93306

== ENCOUNTER → 2018-04-21 | Outpatient (CLI) | payer MEDICARE ==
[~2018-04-21] MED LIST changes: -AMLO10TA2 PO; +AMLO10TA6 PO; +BUPIVACAINE MPF 0.25% 10 ML VIAL. IJ ONE; +BUPIVACAINE MPF 0.25% 30 ML VIAL. INJ ONE; +IOHEXOL 300 MG/ML 50 ML VIAL. IJ ONE; +IOHEXOL 300 MG/ML 50 ML VIAL. ONE; +LIDOCAINE WITH 8.4% SOD BICARB 3 ML DISP.SYRIN. INJ ONE; -LOSA100T6 PO; +LOSA100T7 PO; -LOSA50TA6 PO; +LOSA50TA7 PO; +methylPREDNISolone ACETATE 40 MG/ML VIAL. IM ONE
--- NOTE | 2018-04-21 15:56 | RAD ---
Fluoroscopically guided right shoulder joint injection, 04/21/2018: History: Arthritis, shoulder pain Under local anesthesia, aseptic conditions and fluoroscopic guidance a 22-gauge spinal needle was passed into the right shoulder joint via an anterior approach. A small amount of iodinated contrast material was injected to confirm intra-articular positioning following which 40 mg of Depo-Medrol mixed with 4 cc of 0.25% Marcaine was injected into the joint as requested. The spinal needle was then removed and hemostasis obtained. 0.9 minutes of fluoroscopy time was utilized. One fluoroscopic spot image was recorded. Although the intent was not diagnostic, this single image does demonstrate a rotator cuff tear. The patient tolerated the procedure well and left the department in stable condition.
== END | disposition home or self-care (01) ==
LOC: RAD 14:39
PROVIDERS: ATTEND Physical Medicine & Rehabilitation
DX: M75.01 Adhesive capsulitis of right shoulder (principal); M19.011 Primary osteoarthritis, right shoulder; Z88.5 Allergy status to narcotic agent
CPT/HCPCS: 20610; 77002; J1030; J3490; Q9967

== ENCOUNTER 2019-06-07 12:34 | Inpatient (IN) | payer MEDICARE ==
[~2019-06-07] VITALS: Ht 157.5 cm; Wt 60.8 kg
[~2019-06-07 12:34] MED LIST changes: -AMLO10TA6 PO; +AMLO10TA8 PO; -BUPIVACAINE MPF 0.25% 10 ML VIAL. IJ ONE; -BUPIVACAINE MPF 0.25% 30 ML VIAL. INJ ONE; -IOHEXOL 300 MG/ML 50 ML VIAL. IJ ONE; -IOHEXOL 300 MG/ML 50 ML VIAL. ONE; -LIDOCAINE WITH 8.4% SOD BICARB 3 ML DISP.SYRIN. INJ ONE; +LOSA-73 PO; +LOSA100T14 PO; -LOSA100T7 PO; -LOSA50TA7 PO; -MECL12.52 PO; +MECL12.573 PO; -methylPREDNISolone ACETATE 40 MG/ML VIAL. IM ONE
[2019-06-07] MEDS ORDERED: ONDANSETRON PF 4 MG/2 ML VIAL. IVP ONE (13:15)
[2019-06-07] MEDS ORDERED: fentaNYL PF VIAL 100 MCG/2 ML VIAL IVP ONE (13:15)
--- NOTE | 2019-06-07 13:43 | RAD ---
EXAM: Right shoulder, 3 views. HISTORY: Pain. COMPARISON: None. FINDINGS: 3 views of the right shoulder obtained. There is no fracture, dislocation or subluxation. There is calcification within the subacromial space likely due to rotator cuff calcific tendinitis. There are calcified granulomas the right upper lobe and right paratracheal region. IMPRESSION: 1. No acute osseous finding. 2. Suspected rotator cuff calcific tendinitis. Electronically signed by: Mattie Palencia MD (06/07/2019 1:40 PM) [place] [id number]
[2019-06-07 13:44] LABS: BILIRUBIN,URINE NEGATIVE (NEG); CLARITY,URINE CLEAR; COLOR,URINE YELLOW; NITRITE,URINE POSITIVE (NEG); PROTEIN,URINE NEGATIVE (NEG-TRACE); UROBILINOGEN,URINE 0.2 mg/dL (0.2 mg/dL)
--- NOTE | 2019-06-07 13:48 | RAD ---
EXAM: CHEST 1 VIEW History: Pain COMPARISON: 11/12/2015 TECHNIQUE: Single portable radiograph of the chest FINDINGS: The cardiac silhouette is unremarkable. The lungs are clear bilaterally. The costophrenic sulci are clear and well demarcated. IMPRESSION: No radiographic evidence of an acute cardiopulmonary process. Electronically signed by: Dionicio Escamilla MD (06/07/2019 1:45 PM) [id number]
[2019-06-07 13:50] LABS: BACTERIA,URINE MANY /HPF (0-FEW); RBC,URINE 0 /HPF (0-2); WBC,URINE TNTC /HPF (0-4)
[2019-06-07 13:51] LABS: SQUAMOUS EPITHELIAL CELL,UR MOD /LPF
--- NOTE | 2019-06-07 13:56 | PHYS DOC ---
Past Medical History Past Medical History: Cancer, GERD, High Cholesterol, Hypertension, Other Additional Past Medical Histor: breast cancer Past Surgical History: Other Additional Past Surgical Histo: cochlear implant,lt breast lumpectomy,ectopic Alcohol Use: None Drug Use: None Adult General Chief Complaint Chief Complaint: MECHANICAL FALL HPI HPI Patient is a 88 year old female patient with history of hypertension, dyslipidemia, GERD, breast cancer who presents with complaining of right shoulder injury. Patient states she had an accidental fall yesterday morning when she lost her balance inside of her home and landed on right side without loss of consciousness. Patient complaining of right shoulder pain since yesterday as a constant pain and didn't move her arm because of the pain. Patient denies focal neuro deficit and other injuries. Patient states she didn't take her medication today because of pain. Review of Systems Review of Systems Constitutional: Denies fever or chills [] Eyes: Denies change in visual acuity, redness, or eye pain [] HENT: Denies nasal congestion or sore throat [] Respiratory: Denies cough or shortness of breath [] Cardiovascular: No additional information not addressed in HPI [] GI: Denies abdominal pain, nausea, vomiting, bloody stools or diarrhea [] : Denies dysuria or hematuria [] Musculoskeletal: Denies back pain, reports joint pain [] Integument: Denies rash or skin lesions [] Neurologic: Denies headache, focal weakness or sensory changes [] Endocrine: Denies polyuria or polydipsia [] All other systems were reviewed and found to be within normal limits, except as documented in this note. Current Medications Current Medications Current Medications Medications (Trade) Dose Ordered Sig/Phani Start Time Stop Time Status Last Admin Dose Admin Fentanyl Citrate (Fentanyl 2ml Vial) 50 mcg 1X ONCE 06/07/19 13:15 06/07/19 13:16 DC 06/07/19 13:57 50 MCG Ondansetron HCl (Zofran) 4 mg 1X ONCE 06/07/19 13:15 06/07/19 13:16 DC 06/07/19 13:56 4 MG Allergies Allergies Allergies Coded Allergies Type Severity Reaction Last Updated Verified codeine Allergy Intermediate 09/11/15 Yes Physical Exam Physical Exam Constitutional: Mild distress, non-toxic appearance. [] HENT: Normocephalic, atraumatic. Eyes: PERRLA, EOMI, conjunctiva normal, no discharge. [] Neck: Normal range of motion, no tenderness, supple, no stridor. [] Cardiovascular:Heart rate regular rhythm, no murmur [] Lungs & Thorax: Bilateral breath sounds clear to auscultation [] Abdomen: Bowel sounds normal, soft, no tenderness, no masses, no pulsatile masses. [] Skin: Warm, dry, no erythema, no rash. [] Back: No tenderness, no CVA tenderness. [] Extremities: Right shoulder without deformity or edema, painful range of motion of right shoulder Neuro: Alert and oriented, no focal neuro deficit. Psychologic: Affect normal, judgement normal, mood normal. [] Current Patient Data Vital Signs Vital Signs Date Time Temp Pulse Resp B/P (MAP) Pulse Ox O2 Delivery O2 Flow Rate FiO2 06/07/19 13:57 17 96 Room Air 2.0 06/07/19 12:34 98.4 69 176/86 (116) 98.4 Lab Values Laboratory Tests Test 06/07/19 13:30 06/07/19 13:40 06/07/19 14:55 Urine Collection Type Unknown Urine Color Yellow Urine Clarity Clear Urine pH 8.0 Urine Specific [place] 1.010 Urine Protein Negative mg/dL (NEG-TRACE) Urine Glucose (UA) Negative mg/dL (NEG) Urine Ketones (Stick) Negative mg/dL (NEG) Urine Blood Negative (NEG) Urine Nitrite Positive (NEG) Urine Bilirubin Negative (NEG) Urine Urobilinogen Dipstick 0.2 mg/dL (0.2 mg/dL) Urine Leukocyte Esterase Moderate (NEG) Urine RBC 0 /HPF (0-2) Urine WBC Tntc /HPF (0-4) Urine Squamous Epithelial Cells Mod /LPF Urine Bacteria Many /HPF (0-FEW) White Blood Count 14.7 x10^3/uL (4.0-11.0) H Red Blood Count 4.50 x10^6/uL (3.50-5.40) Hemoglobin 12.8 g/dL (12.0-15.5) Hematocrit 37.8 % (36.0-47.0) Mean Corpuscular Volume 84 fL (79-100) Mean Corpuscular Hemoglobin 29 pg (25-35) Mean Corpuscular Hemoglobin Concent 34 g/dL (31-37) Red Cell Distribution Width 13.3 % (11.5-14.5) Platelet Count 423 x10^3/uL (140-400) H Neutrophils (%) (Auto) 86 % (31-73) H Lymphocytes (%) (Auto) 6 % (24-48) L Monocytes (%) (Auto) 7 % (0-9) Eosinophils (%) (Auto) 0 % (0-3) Basophils (%) (Auto) 1 % (0-3) Neutrophils # (Auto) 12.7 x10^3/uL (1.8-7.7) H Lymphocytes # (Auto) 0.8 x10^3/uL (1.0-4.8) L Monocytes # (Auto) 1.1 x10^3/uL (0.0-1.1) Eosinophils # (Auto) 0.0 x10^3/uL (0.0-0.7) Basophils # (Auto) 0.1 x10^3/uL (0.0-0.2) Segmented Neutrophils % 89 % (35-66) H Lymphocytes % 3 % (24-48) L Monocytes % 8 % (0-10) Toxic Vacuolation Slight Platelet Estimate Increased (ADEQUATE) Platelet Clumps, EDTA Present Large Platelets Occ Giant Platelets Occ [place] Cells Occ Acanthocytes (Spur Cells) Occ Prothrombin Time 12.8 SEC (11.7-14.0) Prothrombin Time INR 1.0 (0.8-1.1) Activated Partial Thromboplast Time 32 SEC (24-38) Sodium Level 128 mmol/L (136-145) L Potassium Level 3.6 mmol/L (3.5-5.1) Chloride Level 92 mmol/L (98-107) L Carbon Dioxide Level 27 mmol/L (21-32) Anion Gap 9 (6-14) Blood Urea Nitrogen 11 mg/dL (7-20) Creatinine 1.1 mg/dL (0.6-1.0) H Estimated GFR (Cockcroft-Gault) 46.9 BUN/Creatinine Ratio 10 (6-20) Glucose Level 135 mg/dL (70-99) H Lactic Acid Level 1.9 mmol/L (0.4-2.0) Calcium Level 9.6 mg/dL (8.5-10.1) Magnesium Level 1.4 mg/dL (1.8-2.4) L Total Bilirubin 0.9 mg/dL (0.2-1.0) Aspartate Amino Transferase (AST) 17 U/L (15-37) Alanine Aminotransferase (ALT) 14 U/L (14-59) Alkaline Phosphatase 105 U/L (46-116) Creatine Kinase 17 U/L (26-192) L Troponin I Quantitative < 0.017 ng/mL (0.000-0.055) GW-Bsm-S-Type Natriuretic Peptide 1499 pg/mL (0-449) H Total Protein 7.1 g/dL (6.4-8.2) Albumin 3.5 g/dL (3.4-5.0) Albumin/Globulin Ratio 1.0 (1.0-1.7) Triglycerides Level 42 mg/dL (0-150) Cholesterol Level 164 mg/dL (0-200) LDL Cholesterol, Calculated 103 mg/dL (0-100) H VLDL Cholesterol, Calculated 8 mg/dL (0-40) Non-HDL Cholesterol Calculated 111 mg/dL (0-129) HDL Cholesterol 53 mg/dL (40-60) Cholesterol/HDL Ratio 3.1 Thyroid Stimulating Hormone (TSH) 1.689 uIU/mL (0.358-3.74) Laboratory Tests 06/07/19 13:40 Laboratory Tests 06/07/19 14:55 EKG EKG EKG interpreted by me. EKG at 1351 showed tachycardia rate of 151, no acute ST and T-wave elevation. Radiology/Procedures Radiology/Procedures [][facility] [address] [place] [address] IMAGING REPORT Signed PATIENT: ADEOLA CARTER ACCOUNT: [id number] : 1930 LOCATION: ER AGE: 88 SEX: F EXAM STATUS: REG ER ORD. PHYSICIAN: FRANKLYN ASHLEY MD REASON: right side upper shoulder pain from fall PROCEDURE: CHEST AP ONLY EXAM: CHEST 1 VIEW History: Pain COMPARISON: 11/12/2015 TECHNIQUE: Single portable radiograph of the chest FINDINGS: The cardiac silhouette is unremarkable. The lungs are clear bilaterally. The costophrenic sulci are clear and well demarcated. IMPRESSION: No radiographic evidence of an acute cardiopulmonary process. Electronically signed by: Dionicio Escamilla MD (06/07/2019 1:45 PM) [id number] DICTATED and SIGNED BY: DIONICIO ESCAMILLA MD DATE: 06/07/19 1345 [facility] [address] [place] [address] IMAGING REPORT Signed PATIENT: ADEOLA CARTER ACCOUNT: [id number] : 1930 LOCATION: ER AGE: 88 SEX: F EXAM STATUS: REG ER ORD. PHYSICIAN: FRANKLYN ASHLEY MD REASON: fall PROCEDURE: CT HEAD WO CONTRAST CT HEAD INDICATION: History of fall COMPARISON: 07/08/2016 Exposure: One or more of the following individualized dose reduction techniques were utilized for this examination: 1. Automated exposure control 2. Adjustment of the mA and/or kV according to patient size 3. Use of iterative reconstruction technique TECHNIQUE: 5 mm contiguous axial images were obtained from the skull base to the vertex in both bone and soft tissue algorithm. FINDINGS: Mild bilateral periventricular white matter hypodensities likely chronic small vessel ischemic disease. No evidence of acute intracranial hemorrhage. No extra-axial fluid collections. No mass effect or midline shift. Ventricular size is appropriate. Basal cisterns are patent. No fractures identified.Vance-white differentiation is preserved.Globes and orbits are within normal limits. Opacification left sphenoid sinus and the right mastoid air cells.. IMPRESSION: 1. No acute intracranial findings. Electronically signed by: Dionicio Escamilla MD (06/07/2019 2:48 PM) [id number] DICTATED and SIGNED BY: DIONICIO ESCAMILLA MD DATE: 06/07/19 1447 [facility] [address] [place] [address] IMAGING REPORT Signed PATIENT: ADEOLA CARTER ACCOUNT: [id number] : 1930 LOCATION: ER AGE: 88 SEX: F EXAM STATUS: REG ER ORD. PHYSICIAN: FRANKLYN ASHLEY MD REASON: right side upper shoulder pain from fall PROCEDURE: SHOULDER 2+V RIGHT EXAM: Right shoulder, 3 views. HISTORY: Pain. COMPARISON: None. FINDINGS: 3 views of the right shoulder obtained. There is no fracture, dislocation or subluxation. There is calcification within the subacromial space likely due to rotator cuff calcific tendinitis. There are calcified granulomas the right upper lobe and right paratracheal region. IMPRESSION: 1. No acute osseous finding. 2. Suspected rotator cuff calcific tendinitis. Electronically signed by: Mattie Michael MD (06/07/2019 1:40 PM) [place] [id number] DICTATED and SIGNED BY: MATTIE MICHAEL MD DATE: 06/07/19 134 Course & Med Decision Making Course & Med Decision Making Pertinent Labs and Imaging studies reviewed. (See chart for details) Evaluation of patient in ER showed 88-year-old female patient with a fall yesterday and complaining of right shoulder pain. Patient had blood pressure of more than 200 at arrival to ER that gradually decreased to 170s. Patient had heart rate 80 without arrival to ER and had 1 episodes of heart rate of 150s for a few minutes without loss of consciousness, hypotension, change of mental status, chest pain and shortness of breath and tachycardia arrhythmia resolved spontaneously. Cardiology was consulted and evaluated the patient in ER. She had multiple electrolyte problem with leukocytosis and UTI without elevation of lactic acid.Patient requiring admission for further evaluation and treatment. Discussed with Dr. Roland who is in agreement with admission. Discussed findings and plan with patient and family, who acknowledge understanding and agreement. Dragon Disclaimer Dragon Disclaimer This electronic medical record was generated, in whole or in part, using a voice recognition dictation system. Departure Departure Impression: Primary Impression: Hypomagnesemia Additional Impressions: Hyponatremia Fall at home Urinary tract infection Right shoulder strain Tachyarrhythmia Disposition: ADMITTED INPATIENT (at 1614) Admitting Physician: ABBY (Dr Roland accepted admission at 1614) Condition: IMPROVED Referrals: SAGAR JOEL MD (PCP) Problem Qualifiers Additional Impressions: Fall at home Encounter type: subsequent encounter Qualified Codes: W19.XXXD - U nspecified fall, subsequent encounter; Y92.009 - Unspecified place in unspecified non-institutional (private) residence as the place of occurrence of the external cause Urinary tract infection Urinary tract infection type: site unspecified Hematuria presence: without hematuria Qualified Codes: N39.0 - Urinary tract infection, site not specified Right shoulder strain Encounter type: initial encounter Qualified Codes: S46.911A - Strain of unspecified muscle, fascia and tendon at shoulder and upper arm level, right arm, initial encounter FRANKLYN ASHLEY MD Jun 07, 2019 13:56
--- NOTE | 2019-06-07 14:02 | EKG ---
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
[2019-06-07 14:03] LABS: BASO # 0.1 x10^3/uL (0.0-0.2); BASO % 1 % (0-3); EOS % 0 % (0-3); HEMATOCRIT 37.8 % (36.0-47.0); HEMOGLOBIN 12.8 g/dL (12.0-15.5); LYMPH # 0.8 x10^3/uL (1.0-4.8); LYMPH % 6 % (24-48); MEAN CORPUSCULAR HEMOGLOBIN 29 pg (25-35); MEAN CORPUSCULAR HGB CONC 34 g/dL (31-37); MEAN CORPUSCULAR VOLUME 84 fL (79-100); MONO # 1.1 x10^3/uL (0.0-1.1); MONO % 7 % (0-9); NEUT # 12.7 x10^3/uL (1.8-7.7); NEUT % 86 % (31-73); PLATELET COUNT 423 x10^3/uL (140-400); RED CELL DISTRIBUTION WIDTH 13.3 % (11.5-14.5); WHITE BLOOD COUNT 14.7 x10^3/uL (4.0-11.0)
[2019-06-07 14:12] LABS: PROTHROMBIN TIME PATIENT 12.8 SEC (11.7-14.0)
--- NOTE | 2019-06-07 14:32 | PDOC2 ---
SANDY DUARTE COLOR WORKER 06/07/19 1432: CARDIAC CONSULT DATE OF CONSULT Date of Consult DATE: 06/07/19 TIME: 14:30 REASON FOR CONSULT Reason for Consult: arrhythmia REFERRING PHYSICIAN Referring Physician: Dr. Zamarripa SOURCE Source: Chart review, Patient HISTORY OF PRESENT ILLNESS HISTORY OF PRESENT ILLNESS This is an 88 yo female who presented secondary to right shoulder pain secondary to mechanical fall. Patient lost her balance yesterday and fell on to her right shoulder. Scheduled appointment with Dr. Pinto today to have shoulder injected, but was having some nausea so family decided to bring her to the ED for further evaluation and treatment. Was noted with brief episode of SVT in ED, which prompted this consult. UA notable for UTI. Patient does not feel that there is anything wrong with her heart and would prefer to go home. She denies any dizziness, diaphoresis, chest pain, or palpitations. Took some Ultram for pain today and did not eat, which made her nauseated today. PAST MEDICAL HISTORY Cardiovascular: CHF, HTN, Hyperlipidemia, Other (vertigo ) GI: GERD Heme/Onc: Cancer (breast ) Psych: Depression Musculoskeletal: Osteoarthritis Renal/: Other (frequency ) PAST SURGICAL HISTORY Past Surgical History: Hysterectomy, Other (cochlear implant ) FAMILY HISTORY Family History: Hypertension, Stroke SOCIAL HISTORY Smoke: No ALCOHOL: none Drugs: None Lives: with Family CURRENT MEDICATIONS CURRENT MEDICATIONS Current Medications Medications (Trade) Dose Ordered Sig/Phani Route PRN Reason Start Time Stop Time Status Last Admin Dose Admin Ondansetron HCl (Zofran) 4 mg 1X ONCE IVP 06/07/19 13:15 06/07/19 13:16 DC 06/07/19 13:56 Fentanyl Citrate (Fentanyl 2ml Vial) 50 mcg 1X ONCE IVP 06/07/19 13:15 06/07/19 13:16 DC 06/07/19 13:57 ALLERGIES ALLERGIES: Coded Allergies: codeine (Verified Allergy, Intermediate, 09/11/15) ROS Review of System 14 point ROS conducted with pertinent positives noted above in HPI PHYSICAL EXAM General: Alert, Oriented X3, Cooperative, No acute distress HEENT: Atraumatic, Mucous membr. moist/pink Lungs: Clear to auscultation Heart: Regular rate, Normal S1, Normal S2, Other (2/6 systolic murmur ) Abdomen: Soft, No tenderness Extremities: Normal pulses, Other (trace bilateral LE edema ) Skin: No significant lesion Neuro: Normal speech, Sensation intact Psych/Mental Status: Mental status NL, Other (flat affect ) MUSCULOSKELETAL: Osteoarthritic changes both hands VITALS/I&O VITALS/I&O: Vital Signs Date Time Temp Pulse Resp B/P (MAP) Pulse Ox O2 Delivery O2 Flow Rate FiO2 06/07/19 13:57 17 96 Room Air 2.0 06/07/19 12:34 98.4 69 176/86 (116) 98.4 LABS Lab: Laboratory Tests Test 06/07/19 13:30 06/07/19 13:40 Urine Collection Type Unknown Urine Color Yellow Urine Clarity Clear Urine pH 8.0 Urine Specific [place] 1.010 Urine Protein Negative mg/dL (NEG-TRACE) Urine Glucose (UA) Negative mg/dL (NEG) Urine Ketones (Stick) Negative mg/dL (NEG) Urine Blood Negative (NEG) Urine Nitrite Positive (NEG) Urine Bilirubin Negative (NEG) Urine Urobilinogen Dipstick 0.2 mg/dL (0.2 mg/dL) Urine Leukocyte Esterase Moderate (NEG) Urine RBC 0 /HPF (0-2) Urine WBC Tntc /HPF (0-4) Urine Squamous Epithelial Cells Mod /LPF Urine Bacteria Many /HPF (0-FEW) White Blood Count 14.7 x10^3/uL (4.0-11.0) H Red Blood Count 4.50 x10^6/uL (3.50-5.40) Hemoglobin 12.8 g/dL (12.0-15.5) Hematocrit 37.8 % (36.0-47.0) Mean Corpuscular Volume 84 fL (79-100) Mean Corpuscular Hemoglobin 29 pg (25-35) Mean Corpuscular Hemoglobin Concent 34 g/dL (31-37) Red Cell Distribution Width 13.3 % (11.5-14.5) Platelet Count 423 x10^3/uL (140-400) H Neutrophils (%) (Auto) 86 % (31-73) H Lymphocytes (%) (Auto) 6 % (24-48) L Monocytes (%) (Auto) 7 % (0-9) Eosinophils (%) (Auto) 0 % (0-3) Basophils (%) (Auto) 1 % (0-3) Neutrophils # (Auto) 12.7 x10^3/uL (1.8-7.7) H Lymphocytes # (Auto) 0.8 x10^3/uL (1.0-4.8) L Monocytes # (Auto) 1.1 x10^3/uL (0.0-1.1) Eosinophils # (Auto) 0.0 x10^3/uL (0.0-0.7) Basophils # (Auto) 0.1 x10^3/uL (0.0-0.2) Platelet Estimate Pending Prothrombin Time 12.8 SEC (11.7-14.0) Prothrombin Time INR 1.0 (0.8-1.1) Activated Partial Thromboplast Time 32 SEC (24-38) Laboratory Tests 06/07/19 13:40 ECHOCARDIOGRAM ECHOCARDIOGRAM <Conclusion> The left ventricle is normal size. The left ventricular systolic function is normal and the ejection fraction is within normal range. The Ejection Fraction is 60-65%. There is normal LV segmental wall motion. There is no significant aortic valvular stenosis. Doppler and Color Flow revealed trace aortic regurgitation. Doppler and Color Flow revealed mild mitral regurgitation. Doppler and Color Flow revealed mild tricuspid regurgitation. The pulmonary artery systolic pressure is estimated at 39 mmHg. DATE: 08/27/16 1248 STRESS TEST STRESS TEST Conclusion 1. No evidence of stress induced EKG changes. 2. No evidence reversible myocardial perfusion defect or prior infarct. 3. Normal EF with stress at > 70% (Small hypercontractile LV) 4. Low risk stress test. DATE: 01/26/15 1608 ASSESSMENT/PLAN ASSESSMENT/PLAN 1. Mechanical fall with right shoulder pain 2. Arrhythmia, noted with period atrial flutter with RVR. Converted back to SR/SA without intervention. Probable h/o of PAFIB/flutter. Was reportedly noted prior to surgery in 2017. Underwent further evaluation with event monitor, but no evidence of AFIB/a-flutter was noted. 3. Accelerated hypertension 4. Chronic diastolic CHF; clinically compensated 5. Hyperlipidemia; statin 6. Hyponatremia 7. Vertigo; meclizine PRN 8. H/o breast CA 9. UTI; treatment as per PCP Recommendations ASA therapy. Probable poor candidate for OAC given fall risk TSH, Mg Resume metoprolol for rate control; will increase to 50mg Echo to assess LV systolic function Resume home anti HTN therapy Monitor tele Consider outpatient event monitor to assess need for rhythm maintenance CARMEL NUNEZ MD 06/07/19 1740: CARDIAC CONSULT ASSESSMENT/PLAN ASSESSMENT/PLAN Patient seen and examined. Agree with VENTILATOR SPECIALIST's assessment and plan. Fall appears to be mechanical without any syncope Telemetry strips showed episodes of atrial flutter with rapid ventricular response Agree with resuming metoprolol increasing the dose to 50 mg twice a day She is probably a poor candidate for long-term anticoagulation Resume home antihypertensives and titrate for better blood pressure control Chronic diastolic heart failure clinically well compensated Check 2-D echo to assess LV systolic function Plan for outpatient event monitor to evaluate the need for antiarrhythmic therapy Thank you for your consultation SANDY DUARTE APRN Jun 07, 2019 14:32 CARMEL NUNEZ MD Jun 07, 2019 17:40
[2019-06-07 14:40] LABS: % LYMPHS 3 % (24-48); % MONOS 8 % (0-10); % SEGS 89 % (35-66); PLATELET CLUMP PRESENT
[2019-06-07 14:41] LABS: ACANTHOCYTES OCC; BURR CELLS OCC; TOXIC VACUOLATION SLIGHT
[2019-06-07 14:42] LABS: PLT ESTIMATE INCREASED (ADEQUATE)
--- NOTE | 2019-06-07 14:51 | RAD ---
CT HEAD INDICATION: History of fall COMPARISON: 07/08/2016 Exposure: One or more of the following individualized dose reduction techniques were utilized for this examination: 1. Automated exposure control 2. Adjustment of the mA and/or kV according to patient size 3. Use of iterative reconstruction technique TECHNIQUE: 5 mm contiguous axial images were obtained from the skull base to the vertex in both bone and soft tissue algorithm. FINDINGS: Mild bilateral periventricular white matter hypodensities likely chronic small vessel ischemic disease. No evidence of acute intracranial hemorrhage. No extra-axial fluid collections. No mass effect or midline shift. Ventricular size is appropriate. Basal cisterns are patent. No fractures identified.Vance-white differentiation is preserved.Globes and orbits are within normal limits. Opacification left sphenoid sinus and the right mastoid air cells.. IMPRESSION: 1. No acute intracranial findings. Electronically signed by: Dionicio Escamilla MD (06/07/2019 2:48 PM) [id number]
[2019-06-07 15:14] LABS: CALCIUM 9.6 mg/dL (8.5-10.1); CREATININE 1.1 mg/dL (0.6-1.0); GFR 46.9; POTASSIUM 3.6 mmol/L (3.5-5.1)
[2019-06-07 15:21] LABS: ALBUMIN 3.5 g/dL (3.4-5.0); CHOLESTEROL/HDL RATIO 3.1; TOTAL BILIRUBIN 0.9 mg/dL (0.2-1.0); TOTAL PROTEIN 7.1 g/dL (6.4-8.2)
[2019-06-07 16:30] VITALS: BP 181/74
[2019-06-07] MEDS ORDERED: MAGNESIUM SULFATE 2GM 50 ML IV ONE (17:00)
[2019-06-07] MEDS ORDERED: AMLO2.5T5 PO (17:21)
[2019-06-07] MEDS ORDERED: PANT40TA6 PO (17:21)
[2019-06-07] MEDS ORDERED: METO25TA4 PO (17:21)
[2019-06-07] MEDS ORDERED: HYDR-2869 PO (17:21)
[2019-06-07] MEDS ORDERED: MECL-75 PO (17:24)
[2019-06-07] MEDS ORDERED: ASPI325T8 PO (17:24)
[2019-06-07] MEDS ORDERED: CHOL500062 PO (17:26)
[2019-06-07] MEDS ORDERED: ESZO1TAB10 PO (17:27)
[2019-06-07] MEDS ORDERED: MECLIZINE HCL 12.5 MG TABLET. PO PRN (17:45)
[2019-06-07] MEDS ORDERED: FLU VAX QS 2019-20 (36MOS+)/PF 0.5 ML SYRINGE. VAX IM ONE (18:00)
[2019-06-07] MEDS: fentaNYL PF VIAL 100 MCG/2 ML VIAL IV PRN (18:42)
[2019-06-07 18:57] VITALS: BP 178/92
--- NOTE | 2019-06-07 19:43 | NUR ---
Notified ICU charge nurse Eloise of patient's positive sepsis screen & also messaged Dr. Roland to get antibiotics started.
[2019-06-07] MEDS ORDERED: METOPROLOL TART IMMED RELEASE 50 MG TABLET. PO SCH (21:00)
[2019-06-07] MEDS: cefTRIAXone IV Push 1 GM VIAL. IVP SCH (21:02)
[2019-06-07] MEDS: ASPIRIN 325 MG TABLET PO SCH (21:02)
[2019-06-07] MEDS: traMADol 50 MG TABLET PO PRN (21:03)
--- NOTE | 2019-06-07 21:04 | PDOC1 ---
History and Physical Date of Admission: Date of Admission DATE: 06/07/19 TIME: 20:58 Chief Complaint: Problems: (1) Neck pain (2) Angina at rest (3) Skin tear (4) TIA (transient ischemic attack) (5) TIA (transient ischemic attack) (6) Vertigo (7) Hypomagnesemia (8) Urinary tract infection (9) Hyponatremia (10) Tachyarrhythmia (11) Right shoulder strain (12) Fall at home Chief Complain: Fall with right shoulder pain History of Present Illness: HPI: This is an elderly female who fell yesterday struck her right shoulder Since then the right shoulder has been swollen and painful She was scheduled to see Dr. Akers for an injection but the family brought her to the hospital because the pain was to much while in the ER she's noted to have a UTI She also had some arrhythmias in the ER Some noted to have some ocular disturbances with hypomagnesemia and hyponatremia She rates her pain at 9 out of 10 Moving makes it worse sitting still makes it better Qleo-[id number]-nexnoqy meds did not help Describes pain is very irritating I discussed case with ER physician we are admitting the patient with consultation to cardiology Past Medical/Surgical History: PMH/PSH: Past Medical History: Cancer, GERD, High Cholesterol, Hypertension, Other Additional Past Medical Histor: breast cancer Past Surgical History: Other Additional Past Surgical Histo: cochlear implant,lt breast lumpectomy,ectopic Allergies: Allergies: Coded Allergies: codeine (Verified Allergy, Intermediate, 09/11/15) Family History: Family History: Hypertension Social History: Social Hisoty: She is retired she doesn't drink smoke or take drugs Current Medications: Current Medications Current Medications Ondansetron HCl (Zofran) 4 mg 1X ONCE IVP Last administered on 06/07/19at 13:56; Start 06/07/19 at 13:15; Stop 06/07/19 at 13:16; Status DC Fentanyl Citrate (Fentanyl 2ml Vial) 50 mcg 1X ONCE IVP Last administered on 06/07/19at 13:57; Start 06/07/19 at 13:15; Stop 06/07/19 at 13:16; Status DC Metoprolol Tartrate (Lopressor) 50 mg BID PO ; Start 06/07/19 at 21:00 Magnesium Sulfate 50 ml @ 25 mls/hr 1X ONCE IV Last administered on 06/07/19at 18:45; Start 06/07/19 at 17:00; Stop 06/07/19 at 18:59; Status DC Fentanyl Citrate (Fentanyl 2ml Vial) 50 mcg PRN Q2HR PRN IV PAIN Last administered on 06/07/19at 18:42; Start 06/07/19 at 16:45 Sodium Chloride 1,000 ml @ 75 mls/hr [id number] IV ; Start 06/07/19 at 16:40; Stop 06/08/19 at 16:39 Influenza Virus Vaccine Quadrival (Afluria Quad 2019-20 (3yr Up) Syringe) 0.5 ml ONCE ONCE VAX IM ; Start 06/07/19 at 18:00; Stop 06/07/19 at 18:01; Status DC Acetaminophen/ Hydrocodone Bitart (Lortab 5/325) 1 tab PRN Q4HRS PRN PO PAIN; Start 06/07/19 at 17:45 Aspirin (Jaci Aspirin) 325 mg HS PO ; Start 06/07/19 at 21:00 Hydralazine HCl (Apresoline) 50 mg QID PO ; Start 06/07/19 at 21:00 Meclizine HCl (Antivert) 25 mg PRN Q8HRS PRN PO dizziness; Start 06/07/19 at 17:45 Pantoprazole Sodium (Protonix) 40 mg DAILY PO ; Start 06/08/19 at 09:00 Tramadol HCl (Ultram) 50 mg PRN QID PRN PO PAIN; Start 06/07/19 at 17:45 Amlodipine Besylate (Norvasc) 2.5 mg DAILY PO ; Start 06/08/19 at 09:00 Vitamin D (Vitamin D3) 1,000 unit DAILY PO ; Start 06/08/19 at 09:00 Zolpidem Tartrate (Ambien) 5 mg PRN QHS PRN PO INSOMNIA; Start 06/07/19 at 18:00 Losartan Potassium (Cozaar) 100 mg DAILY PO ; Start 06/08/19 at 09:00 Ceftriaxone Sodium (Rocephin) 1 gm Q24H IVP ; Start 06/07/19 at 19:45 Active Scripts Active Meclizine Hcl 12.5 Mg Tablet 25 Mg PO PRN Q8HRS PRN 30 Days Losartan Potassium 100 Mg Tablet 100 Mg PO DAILY Reported Eszopiclone 1 Mg Tablet 1 Mg PO HS Vitamin D3 (Cholecalciferol (Vitamin D3)) 5,000 Unit Tab.rapdis 1 Tab PO DAILY 30 Days Aspirin 325 Mg Tablet 1 Tab PO HS Metoprolol Tartrate 25 Mg Tablet 1 Tab PO DAILY Hydralazine Hcl 50 Mg Tablet 50 Mg PO QID Amlodipine Besylate 2.5 Mg Tablet 2.5 Mg PO DAILY Pantoprazole Sodium 40 Mg Tablet.dr 40 Mg PO DAILY Tramadol Hcl 50 Mg Tablet 50 Mg PO PRN QID PRN ROS: Review of Systems Review of System REVIEW OF SYSTEMS: GENERAL: Complains of weakness and a recent fall SKIN: No bruising, hair changes or rashes. EYES: No blurred, double or loss of vision. NOSE AND THROAT: No history of nosebleeds, hoarseness or sore throat. HEART: No history of palpitations, chest pain or shortness of breath on exertion. LUNGS: Denies cough, hemoptysis, wheezing or shortness of breath. GASTROINTESTINAL: Denies changes in appetite, nausea, vomiting, diarrhea or constipation. GENITOURINARY: No history of frequency, urgency, hesitancy or nocturia. NEUROLOGIC: Complains of weakness and a recent fall PSYCHIATRIC: Complains of depression ENDOCRINE: No history of heat or cold intolerance, polyuria or polydipsia. EXTREMITIES: Complains of right shoulder pain Physical Exam: Vital Signs: Vital Signs Date Time Temp Pulse Resp B/P (MAP) Pulse Ox O2 Delivery O2 Flow Rate FiO2 06/07/19 18:57 98.9 72 18 178/92 (120) 96 Room Air 98.9 06/07/19 13:57 2.0 Physcial Exam: GEN: Frail and depressed but pleasant and trying to be cooperative HEENT: She has a cochlear implant EYES: Extraocular muscles are intact, pupil are equally round and reactive to light and accommodation MUSCULOSKELETAL: Well developed , well nourished, good range of motion ENDOCRINE: No thyromegaly was palpated LYMPHATICS: No cervical chain or axillary nodes were noted HEMATOPOIETIC: No bruising NECK: Supple, no JVD, no thyromegaly was noted LUNGS: Clear to auscultation in all lung sheldon without rhonchi or wheezing HEART: RRR, S!, S2 present. Peripheral pulses intact, no obvious murmurs noted ABDOMEN: Soft, nontender. Positive bowel sounds, no organomegaly, normal bowel sounds EXTREMITIES: Without clubbing, cyanosis, or edema. Pedal pulses intact. Negative Homans sign NEUROLOGIC: Weak but no focal deficits PSYCHIATRIC: Seems depressed SKIN: She has some old healed scars on her left forehead from skin cancer VASCULAR: Good capillary refill, neurovascular bundle appears to be intact Labs: Labs: Laboratory Tests Test 06/07/19 13:30 06/07/19 13:40 06/07/19 14:55 Urine Collection Type Unknown Urine Color Yellow Urine Clarity Clear Urine pH 8.0 Urine Specific [place] 1.010 Urine Protein Negative mg/dL (NEG-TRACE) Urine Glucose (UA) Negative mg/dL (NEG) Urine Ketones (Stick) Negative mg/dL (NEG) Urine Blood Negative (NEG) Urine Nitrite Positive (NEG) Urine Bilirubin Negative (NEG) Urine Urobilinogen Dipstick 0.2 mg/dL (0.2 mg/dL) Urine Leukocyte Esterase Moderate (NEG) Urine RBC 0 /HPF (0-2) Urine WBC Tntc /HPF (0-4) Urine Squamous Epithelial Cells Mod /LPF Urine Bacteria Many /HPF (0-FEW) White Blood Count 14.7 x10^3/uL (4.0-11.0) Red Blood Count 4.50 x10^6/uL (3.50-5.40) Hemoglobin 12.8 g/dL (12.0-15.5) Hematocrit 37.8 % (36.0-47.0) Mean Corpuscular Volume 84 fL (79-100) Mean Corpuscular Hemoglobin 29 pg (25-35) Mean Corpuscular Hemoglobin Concent 34 g/dL (31-37) Red Cell Distribution Width 13.3 % (11.5-14.5) Platelet Count 423 x10^3/uL (140-400) Neutrophils (%) (Auto) 86 % (31-73) Lymphocytes (%) (Auto) 6 % (24-48) Monocytes (%) (Auto) 7 % (0-9) Eosinophils (%) (Auto) 0 % (0-3) Basophils (%) (Auto) 1 % (0-3) Neutrophils # (Auto) 12.7 x10^3/uL (1.8-7.7) Lymphocytes # (Auto) 0.8 x10^3/uL (1.0-4.8) Monocytes # (Auto) 1.1 x10^3/uL (0.0-1.1) Eosinophils # (Auto) 0.0 x10^3/uL (0.0-0.7) Basophils # (Auto) 0.1 x10^3/uL (0.0-0.2) Segmented Neutrophils % 89 % (35-66) Lymphocytes % 3 % (24-48) Monocytes % 8 % (0-10) Toxic Vacuolation Slight Platelet Estimate Increased (ADEQUATE) Platelet Clumps, EDTA Present Large Platelets Occ Giant Platelets Occ Jessica Cells Occ Acanthocytes Occ Prothrombin Time 12.8 SEC (11.7-14.0) Prothromb Time International Ratio 1.0 (0.8-1.1) Activated Partial Thromboplast Time 32 SEC (24-38) Sodium Level 128 mmol/L (136-145) Potassium Level 3.6 mmol/L (3.5-5.1) Chloride Level 92 mmol/L (98-107) Carbon Dioxide Level 27 mmol/L (21-32) Anion Gap 9 (6-14) Blood Urea Nitrogen 11 mg/dL (7-20) Creatinine 1.1 mg/dL (0.6-1.0) Estimated GFR (Cockcroft-Gault) 46.9 BUN/Creatinine Ratio 10 (6-20) Glucose Level 135 mg/dL (70-99) Lactic Acid Level 1.9 mmol/L (0.4-2.0) Calcium Level 9.6 mg/dL (8.5-10.1) Magnesium Level 1.4 mg/dL (1.8-2.4) Total Bilirubin 0.9 mg/dL (0.2-1.0) Aspartate Amino Transf (AST/SGOT) 17 U/L (15-37) Alanine Aminotransferase (ALT/SGPT) 14 U/L (14-59) Alkaline Phosphatase 105 U/L (46-116) Creatine Kinase 17 U/L (26-192) Troponin I Quantitative < 0.017 ng/mL (0.000-0.055) NI-Oth-I-Type Natriuretic Peptide 1499 pg/mL (0-449) Total Protein 7.1 g/dL (6.4-8.2) Albumin 3.5 g/dL (3.4-5.0) Albumin/Globulin Ratio 1.0 (1.0-1.7) Triglycerides Level 42 mg/dL (0-150) Cholesterol Level 164 mg/dL (0-200) LDL Cholesterol, Calculated 103 mg/dL (0-100) VLDL Cholesterol, Calculated 8 mg/dL (0-40) Non-HDL Cholesterol Calculated 111 mg/dL (0-129) HDL Cholesterol 53 mg/dL (40-60) Cholesterol/HDL Ratio 3.1 Thyroid Stimulating Hormone (TSH) 1.689 uIU/mL (0.358-3.74) Laboratory Tests Test 06/07/19 13:30 06/07/19 13:40 06/07/19 14:55 Urine Collection Type Unknown Urine Color Yellow Urine Clarity Clear Urine pH 8.0 Urine Specific [place] 1.010 Urine Protein Negative mg/dL (NEG-TRACE) Urine Glucose (UA) Negative mg/dL (NEG) Urine Ketones (Stick) Negative mg/dL (NEG) Urine Blood Negative (NEG) Urine Nitrite Positive (NEG) Urine Bilirubin Negative (NEG) Urine Urobilinogen Dipstick 0.2 mg/dL (0.2 mg/dL) Urine Leukocyte Esterase Moderate (NEG) Urine RBC 0 /HPF (0-2) Urine WBC Tntc /HPF (0-4) Urine Squamous Epithelial Cells Mod /LPF Urine Bacteria Many /HPF (0-FEW) White Blood Count 14.7 x10^3/uL (4.0-11.0) Red Blood Count 4.50 x10^6/uL (3.50-5.40) Hemoglobin 12.8 g/dL (12.0-15.5) Hematocrit 37.8 % (36.0-47.0) Mean Corpuscular Volume 84 fL (79-100) Mean Corpuscular Hemoglobin 29 pg (25-35) Mean Corpuscular Hemoglobin Concent 34 g/dL (31-37) Red Cell Distribution Width 13.3 % (11.5-14.5) Platelet Count 423 x10^3/uL (140-400) Neutrophils (%) (Auto) 86 % (31-73) Lymphocytes (%) (Auto) 6 % (24-48) Monocytes (%) (Auto) 7 % (0-9) Eosinophils (%) (Auto) 0 % (0-3) Basophils (%) (Auto) 1 % (0-3) Neutrophils # (Auto) 12.7 x10^3/uL (1.8-7.7) Lymphocytes # (Auto) 0.8 x10^3/uL (1.0-4.8) Monocytes # (Auto) 1.1 x10^3/uL (0.0-1.1) Eosinophils # (Auto) 0.0 x10^3/uL (0.0-0.7) Basophils # (Auto) 0.1 x10^3/uL (0.0-0.2) Segmented Neutrophils % 89 % (35-66) Lymphocytes % 3 % (24-48) Monocytes % 8 % (0-10) Toxic Vacuolation Slight Platelet Estimate Increased (ADEQUATE) Platelet Clumps, EDTA Present Large Platelets Occ Giant Platelets Occ Jessica Cells Occ Acanthocytes Occ Prothrombin Time 12.8 SEC (11.7-14.0) Prothromb Time International Ratio 1.0 (0.8-1.1) Activated Partial Thromboplast Time 32 SEC (24-38) Sodium Level 128 mmol/L (136-145) Potassium Level 3.6 mmol/L (3.5-5.1) Chloride Level 92 mmol/L (98-107) Carbon Dioxide Level 27 mmol/L (21-32) Anion Gap 9 (6-14) Blood Urea Nitrogen 11 mg/dL (7-20) Creatinine 1.1 mg/dL (0.6-1.0) Estimated GFR (Cockcroft-Gault) 46.9 BUN/Creatinine Ratio 10 (6-20) Glucose Level 135 mg/dL (70-99) Lactic Acid Level 1.9 mmol/L (0.4-2.0) Calcium Level 9.6 mg/dL (8.5-10.1) Magnesium Level 1.4 mg/dL (1.8-2.4) Total Bilirubin 0.9 mg/dL (0.2-1.0) Aspartate Amino Transf (AST/SGOT) 17 U/L (15-37) Alanine Aminotransferase (ALT/SGPT) 14 U/L (14-59) Alkaline Phosphatase 105 U/L (46-116) Creatine Kinase 17 U/L (26-192) Troponin I Quantitative < 0.017 ng/mL (0.000-0.055) MQ-Hhk-T-Type Natriuretic Peptide 1499 pg/mL (0-449) Total Protein 7.1 g/dL (6.4-8.2) Albumin 3.5 g/dL (3.4-5.0) Albumin/Globulin Ratio 1.0 (1.0-1.7) Triglycerides Level 42 mg/dL (0-150) Cholesterol Level 164 mg/dL (0-200) LDL Cholesterol, Calculated 103 mg/dL (0-100) VLDL Cholesterol, Calculated 8 mg/dL (0-40) Non-HDL Cholesterol Calculated 111 mg/dL (0-129) HDL Cholesterol 53 mg/dL (40-60) Cholesterol/HDL Ratio 3.1 Thyroid Stimulating Hormone (TSH) 1.689 uIU/mL (0.358-3.74) Images: Images EXAM: Right shoulder, 3 views. HISTORY: Pain. COMPARISON: None. FINDINGS: 3 views of the right shoulder obtained. There is no fracture, dislocation or subluxation. There is calcification within the subacromial space likely due to rotator cuff calcific tendinitis. There are calcified granulomas the right upper lobe and right paratracheal region. IMPRESSION: 1. No acute osseous finding. 2. Suspected rotator cuff calcific tendinitis. Assessment/Plan Assessment/Plan Fall with rotator cuff injury Arrhythmias Hypomagnesemia Hyponatremia UTI Multiple comorbidities Intractable pain Plan Consult cardiology Cardiac monitoring Consult Dr. Pinto Consider steroid injection to the right shoulder When necessary narcotics Resume home meds Replace the magnesium IV fluids IV antibiotics PT OT DVT prophylaxis Full code ABBI TAYLOR III DO Jun 07, 2019 21:04
[2019-06-07] MEDS: IV NORMAL SALINE 1000ML BAG 1,000 ML IV SCH ×3 (21:24→21:51)
--- NOTE | 2019-06-07 21:54 | NUR ---
Patient states that she does not take the HS, 2100 meds on JUL at night. Patient does, however, agree that the hydralazine and tramadol are QID, and that the metoprolol is BID. After discussion, she agrees that therefore she should have these medications at bedtime, and states she does indeed take her aspirin 325 at bedtime. This patient may benefit from home health RN to assist with medication reconciliation and education reinforcement. Cochlear implant external device placed in clean specimen cup with pt sticker at pt request.
[2019-06-07 22:41] VITALS: BP 126/57
[2019-06-07] MEDS: ZOLPIDEM 5 MG TABLET. PO PRN (23:53)
[2019-06-07] MEDS: HYDROcodone/APAP 5/325MG 1 TAB TABLET PO PRN (23:59)
[2019-06-08 02:05] VITALS: BP 119/55
[2019-06-08 07:00] VITALS: BP 172/72
[2019-06-08] MEDS: fentaNYL PF VIAL 100 MCG/2 ML VIAL IV PRN (07:58)
[2019-06-08] MEDS: PANTOPRAZOLE 40 MG TABLET.DR. PO SCH (08:03)
[2019-06-08] MEDS: CHOLECALCIFEROL (VITAMIN D3) 1,000 UNIT TABLET PO SCH (08:04)
[2019-06-08] MEDS: LOSARTAN POTASSIUM 50 MG TABLET. PO SCH (08:05)
--- NOTE | 2019-06-08 08:59 | CARD ---
MR#: [id number] Date of Study: 06/07/2019 Ordering Physician: SANDY DUARTE, Referring Physician: SANDY DUARTE, Tech: [facility] APPROVED REPORT EXAM: Two-dimensional and M-mode echocardiogram with Doppler and color Doppler. Other Information Quality : Good INDICATION Syncope DVT 2D DIMENSIONS RVDd2.1 (2.9-3.5cm)Left Atrium(2D)3.2 (1.6-4.0cm) IVSd1.2 (0.7-1.1cm)Aortic Root(2D)2.7 (2.0-3.7cm) LVDd4.0 (3.9-5.9cm)LVOT Diameter2.0 (1.8-2.4cm) PWd1.2 (0.7-1.1cm)LVDs1.6 (2.5-4.0cm) FS (%) 30.0 %SV62.1 ml LVEF(%)60.0 (>50%) Aortic Valve AoV Peak Tarik.142.0cm/sAoV VTI26.9cm AO Peak GR.8.1mmHgLVOT Peak Tarik.96.0cm/s AO Mean GR.4mmHgAVA (VMAX)2.08cm2 TACOS (VTI)2.90cm2 Mitral Valve MV E Sikstnbi219.9cm/sMV DECEL PBAI190iz MV A Vihikhzz82.6cm/sE/A Ratio1.8 Tricuspid Valve TR P. Rwfwdxng186ws/sRAP GTYBRNEA1lgHd TR Peak Gr.67djMuDIKA65pgRf Pulmonary Vein S1 Kxdjkzwu04.8cm/sD2 Aavyfovy57.5cm/s LEFT VENTRICLE The left ventricle is normal size. There is mild concentric left ventricular hypertrophy. The left ve ntricular systolic function is normal. The Ejection Fraction is 55-60%. There is normal LV segmental wall motion. Transmitral Doppler flow pattern is Grade II-pseudonormal filling dynamics. RIGHT VENTRICLE The right ventricle is normal size. The right ventricular systolic function is normal. ATRIA The left atrium size is normal. The right atrium size is normal. The eustachian valve appears to be prominent but cannot rule out mobile thrombus in right atriu. Consider ALEJANDRA if there is clinical corre lation. The interatrial septum is intact with no evidence for an atrial septal defect or patent karina en [place] as noted on 2-D or Doppler imaging. AORTIC VALVE The aortic valve is calcified but opens well. Doppler and Color Flow revealed no significant aortic r egurgitation. There is no significant aortic valvular stenosis. MITRAL VALVE The mitral valve is calcified but opens well. Mitral annular calcification is mild. There is no evide nce of mitral valve prolapse. There is no mitral valve stenosis. Doppler and Color-flow revealed trac e mitral regurgitation. TRICUSPID VALVE The tricuspid valve is normal in structure and function. Doppler and Color Flow revealed trace to mil d tricuspid regurgitation. There is mild pulmonary hypertension. The PA pressure was estimated at 38 mmHg. There is no tricuspid valve stenosis. PULMONIC VALVE The pulmonic valve is not well visualized. Doppler and Color Flow revealed trace to mild pulmonic aniket vular regurgitation. There is no pulmonic valvular stenosis. GREAT VESSELS The aortic root is normal in size. The ascending aorta is normal in size. The IVC is normal in size a nd collapses >50% with inspiration. PERICARDIAL EFFUSION There is no evidence of significant pericardial effusion. Critical Notification Critical Value: No <Conclusion> The left ventricular systolic function is normal. The Ejection Fraction is 55-60%. There is normal LV segmental wall motion. The eustachian valve appears to be prominent but cannot rule out mobile thrombus in right atriu. Con patternmaker pressure cast ALEJANDRA if there is clinical correlation. Trace mitral regurgitation. Trace to mild tricuspid regurgitation. The PA pressure was estimated at 38 mmHg. There is no evidence of significant pericardial effusion. Signed by : Paresh Adam, Electronically Approved : 06/08/2019 08:58:48
[2019-06-08] MEDS ORDERED: amLODIPine BESYLATE 5 MG TABLET PO SCH (09:00)
[2019-06-08] MEDS: IV NORMAL SALINE 1000ML BAG 1,000 ML IV SCH (10:10)
[2019-06-08] MEDS: traMADol 50 MG TABLET PO PRN ×2 (10:32→20:39)
[2019-06-08 11:00] VITALS: BP 161/67
--- NOTE | 2019-06-08 12:09 | PDOC ---
PROGRESS NOTES Subjective Subjective Feeling better since admission. Denied any chest pain or palpitations. Objective Objective Vital Signs Date Time Temp Pulse Resp B/P (MAP) Pulse Ox O2 Delivery O2 Flow Rate FiO2 06/08/19 11:00 98.7 62 16 161/67 (98) 93 Room Air 98.7 06/07/19 13:57 2.0 Intake and Output 06/08/19 07:00 Intake Total 570 ml Output Total 600 ml Balance -30 ml Intake Oral 520 ml IV Total 50 ml Output Urine Total 600 ml Physical Exam Abdomen: Soft, No tenderness Heart: Regular rate, Other (2/6 systolic murmur ) Extremities: Normal pulses, Other (trace bilateral LE edema ) General: Alert, Oriented X3, Cooperative, No acute distress HEENT: Atraumatic, Mucous membr. moist/pink Lungs: Clear to auscultation Neuro: Normal speech, Sensation intact Psych/Mental Status: Mental status NL, Other (flat affect ) Skin: No significant lesion Assessment Assessment 1. Mechanical fall with right shoulder pain 2. Paroxysmal atrial fibrillation/flutter. No further episodes noted on telemetry overnight. Patient actually bradycardic and beta blockers have been held. We will decrease the dose of metoprolol. 2-D echo showed normal LV systolic function. We will plan for outpatient event monitor to evaluate the need for antiarrhythmic therapy. She is a poor candidate for long-term anticoagulation due to fall risk. 3. Accelerated hypertension: Blood pressure elevated probably cyst metoprolol has been held. Decrease metoprolol dose as stated above and increase amlodipine dose for better blood pressure control. 4. Chronic diastolic CHF; clinically well compensated 5. Hyperlipidemia; statin Plan Plan of Care Problems Medical Problems: (1) Fall at home Status: Acute (2) Hypomagnesemia Status: Acute (3) Hyponatremia Status: Acute (4) Right shoulder strain Status: Acute (5) Tachyarrhythmia Status: Acute (6) Urinary tract infection Status: Acute Comment Review of Relevant I have reviewed the following items silver (where applicable) has been applied. Labs Laboratory Tests Test 06/07/19 13:30 06/07/19 13:40 06/07/19 14:55 Urine Collection Type Unknown Urine Color Yellow Urine Clarity Clear Urine pH 8.0 Urine Specific [place] 1.010 Urine Protein Negative mg/dL (NEG-TRACE) Urine Glucose (UA) Negative mg/dL (NEG) Urine Ketones (Stick) Negative mg/dL (NEG) Urine Blood Negative (NEG) Urine Nitrite Positive (NEG) Urine Bilirubin Negative (NEG) Urine Urobilinogen Dipstick 0.2 mg/dL (0.2 mg/dL) Urine Leukocyte Esterase Moderate (NEG) Urine RBC 0 /HPF (0-2) Urine WBC Tntc /HPF (0-4) Urine Squamous Epithelial Cells Mod /LPF Urine Bacteria Many /HPF (0-FEW) White Blood Count 14.7 x10^3/uL (4.0-11.0) Red Blood Count 4.50 x10^6/uL (3.50-5.40) Hemoglobin 12.8 g/dL (12.0-15.5) Hematocrit 37.8 % (36.0-47.0) Mean Corpuscular Volume 84 fL (79-100) Mean Corpuscular Hemoglobin 29 pg (25-35) Mean Corpuscular Hemoglobin Concent 34 g/dL (31-37) Red Cell Distribution Width 13.3 % (11.5-14.5) Platelet Count 423 x10^3/uL (140-400) Neutrophils (%) (Auto) 86 % (31-73) Lymphocytes (%) (Auto) 6 % (24-48) Monocytes (%) (Auto) 7 % (0-9) Eosinophils (%) (Auto) 0 % (0-3) Basophils (%) (Auto) 1 % (0-3) Neutrophils # (Auto) 12.7 x10^3/uL (1.8-7.7) Lymphocytes # (Auto) 0.8 x10^3/uL (1.0-4.8) Monocytes # (Auto) 1.1 x10^3/uL (0.0-1.1) Eosinophils # (Auto) 0.0 x10^3/uL (0.0-0.7) Basophils # (Auto) 0.1 x10^3/uL (0.0-0.2) Segmented Neutrophils % 89 % (35-66) Lymphocytes % 3 % (24-48) Monocytes % 8 % (0-10) Toxic Vacuolation Slight Platelet Estimate Increased (ADEQUATE) Platelet Clumps, EDTA Present Large Platelets Occ Giant Platelets Occ [place] Cells Occ Acanthocytes Occ Prothrombin Time 12.8 SEC (11.7-14.0) Prothromb Time International Ratio 1.0 (0.8-1.1) Activated Partial Thromboplast Time 32 SEC (24-38) Sodium Level 128 mmol/L (136-145) Potassium Level 3.6 mmol/L (3.5-5.1) Chloride Level 92 mmol/L (98-107) Carbon Dioxide Level 27 mmol/L (21-32) Anion Gap 9 (6-14) Blood Urea Nitrogen 11 mg/dL (7-20) Creatinine 1.1 mg/dL (0.6-1.0) Estimated GFR (Cockcroft-Gault) 46.9 BUN/Creatinine Ratio 10 (6-20) Glucose Level 135 mg/dL (70-99) Lactic Acid Level 1.9 mmol/L (0.4-2.0) Calcium Level 9.6 mg/dL (8.5-10.1) Magnesium Level 1.4 mg/dL (1.8-2.4) Total Bilirubin 0.9 mg/dL (0.2-1.0) Aspartate Amino Transf (AST/SGOT) 17 U/L (15-37) Alanine Aminotransferase (ALT/SGPT) 14 U/L (14-59) Alkaline Phosphatase 105 U/L (46-116) Creatine Kinase 17 U/L (26-192) Troponin I Quantitative < 0.017 ng/mL (0.000-0.055) [id number]-Type Natriuretic Peptide 1499 pg/mL (0-449) Total Protein 7.1 g/dL (6.4-8.2) Albumin 3.5 g/dL (3.4-5.0) Albumin/Globulin Ratio 1.0 (1.0-1.7) Triglycerides Level 42 mg/dL (0-150) Cholesterol Level 164 mg/dL (0-200) LDL Cholesterol, Calculated 103 mg/dL (0-100) VLDL Cholesterol, Calculated 8 mg/dL (0-40) Non-HDL Cholesterol Calculated 111 mg/dL (0-129) HDL Cholesterol 53 mg/dL (40-60) Cholesterol/HDL Ratio 3.1 Thyroid Stimulating Hormone (TSH) 1.689 uIU/mL (0.358-3.74) Medications Current Medications Acetaminophen/ Hydrocodone Bitart (Lortab 5/325) 1 tab PRN Q4HRS PRN PO PAIN Last administered on 06/07/19at 23:59; Start 06/07/19 at 17:45 Amlodipine Besylate (Norvasc) 2.5 mg DAILY PO Last administered on 06/08/19at 08:04; Start 06/08/19 at 09:00 Aspirin (Jaci Aspirin) 325 mg HS PO Last administered on 06/07/19at 21:02; Start 06/07/19 at 21:00 Ceftriaxone Sodium (Rocephin) 1 gm Q24H IVP Last administered on 06/07/19at 21:02; Start 06/07/19 at 19:45 Fentanyl Citrate (Fentanyl 2ml Vial) 50 mcg 1X ONCE IVP Last administered on 06/07/19at 13:57; Start 06/07/19 at 13:15; Stop 06/07/19 at 13:16; Status DC Fentanyl Citrate (Fentanyl 2ml Vial) 50 mcg PRN Q2HR PRN IV PAIN Last administered on 06/08/19at 07:58; Start 06/07/19 at 16:45 Hydralazine HCl (Apresoline) 50 mg QID PO Last administered on 06/08/19at 10:26; Start 06/07/19 at 21:00 Influenza Virus Vaccine Quadrival (Afluria Quad 2019-20 (3yr Up) Syringe) 0.5 ml ONCE ONCE VAX IM Last administered on 06/07/19at 21:23; Start 06/07/19 at 18:00; Stop 06/07/19 at 18:01; Status DC Losartan Potassium (Cozaar) 100 mg DAILY PO Last administered on 06/08/19at 08:05; Start 06/08/19 at 09:00 Magnesium Sulfate 50 ml @ 25 mls/hr 1X ONCE IV Last administered on 06/07/19at 18:45; Start 06/07/19 at 17:00; Stop 06/07/19 at 18:59; Status DC Meclizine HCl (Antivert) 25 mg PRN Q8HRS PRN PO dizziness; Start 06/07/19 at 17:45 Metoprolol Tartrate (Lopressor) 50 mg BID PO Last administered on 06/07/19at 21:02; Start 06/07/19 at 21:00 Ondansetron HCl (Zofran) 4 mg 1X ONCE IVP Last administered on 06/07/19at 13:56; Start 06/07/19 at 13:15; Stop 06/07/19 at 13:16; Status DC Pantoprazole Sodium (Protonix) 40 mg DAILY PO Last administered on 06/08/19at 08:03; Start 06/08/19 at 09:00 Sodium Chloride 1,000 ml @ 75 mls/hr [id number] IV ; Start 06/07/19 at 16:40; Stop 06/08/19 at 16:39 Sodium Chloride 1,000 ml @ 75 mls/hr [id number] IV Last administered on 06/08/19at 10:10; Start 06/07/19 at 21:30 Tramadol HCl (Ultram) 50 mg PRN QID PRN PO PAIN Last administered on 06/08/19at 10:32; Start 06/07/19 at 17:45 Vitamin D (Vitamin D3) 1,000 unit DAILY PO Last administered on 06/08/19at 08:04; Start 06/08/19 at 09:00 Zolpidem Tartrate (Ambien) 5 mg PRN QHS PRN PO INSOMNIA Last administered on 06/07/19at 23:53; Start 06/07/19 at 18:00 Vitals/I & O Vital Sign - Last 24 Hours 06/07/19 06/07/19 06/07/19 06/07/19 12:34 13:45 13:57 14:15 Temp 98.4 98.4 Pulse 69 100 96 Resp 15 18 17 16 B/P (MAP) 176/86 (116) Pulse Ox 96 96 96 95 O2 Delivery Room Air Room Air O2 Flow Rate 2.0 06/07/19 06/07/19 06/07/19 06/07/19 14:45 15:15 15:45 16:30 Temp 98.5 98.5 Pulse 72 72 152 77 Resp 20 16 17 18 B/P (MAP) 181/74 (109) Pulse Ox 96 95 96 92 O2 Delivery Room Air 06/07/19 06/07/19 06/07/19 06/07/19 16:45 16:45 18:42 18:57 Temp 98.9 98.9 Pulse 81 72 Resp 19 18 B/P (MAP) 178/92 (120) Pulse Ox 95 95 96 O2 Delivery Room Air Room Air Room Air 06/07/19 06/07/19 06/07/19 06/07/19 19:15 20:00 21:02 21:03 Pulse 72 72 Resp 20 B/P (MAP) 178/92 178/92 Pulse Ox 96 O2 Delivery Room Air Room Air 06/07/19 06/07/19 06/07/19 06/07/19 21:03 22:17 22:41 23:59 Temp 99.0 99.0 Pulse 56 Resp 20 18 22 B/P (MAP) 126/57 (80) Pulse Ox 96 96 96 96 O2 Delivery Room Air Room Air Room Air Room Air 06/08/19 06/08/19 06/08/19 06/08/19 01:00 02:05 07:00 07:58 Temp 98.7 98.5 98.7 98.5 Pulse 47 55 Resp 18 16 18 B/P (MAP) 119/55 (76) 172/72 (105) Pulse Ox 95 95 93 O2 Delivery Room Air Room Air Room Air Room Air 06/08/19 06/08/19 06/08/19 06/08/19 08:00 08:04 08:05 08:28 Pulse 57 56 B/P (MAP) 172/72 172/72 O2 Delivery Room Air Room Air 06/08/19 06/08/19 06/08/19 10:26 10:32 11:00 Temp 98.7 98.7 Pulse 59 62 Resp 16 B/P (MAP) 176/61 161/67 (98) Pulse Ox 93 O2 Delivery Room Air Room Air Intake and Output 06/07/19 06/07/19 06/08/19 15:00 23:00 07:00 Intake Total 170 ml 400 ml Output Total 600 ml Balance 170 ml -200 ml CARMEL NUNEZ MD Jun 08, 2019 12:09
[2019-06-08] MEDS: amLODIPine BESYLATE 10 MG TABLET PO SCH (12:15)
[2019-06-08] MEDS: HYDROcodone/APAP 5/325MG 1 TAB TABLET PO PRN (14:11)
--- NOTE | 2019-06-08 14:53 | PDOC ---
PROGRESS NOTES Chief Complaint Chief Complaint (1) Neck pain (2) Angina at rest (3) Skin tear (4) Uncontrolled hypertension (5) TIA (transient ischemic attack) (6) Vertigo (7) Hypomagnesemia (8) Urinary tract infection (9) Hyponatremia (10) Tachyarrhythmia (11) Right shoulder strain (12) Fall at home Plan: follow recommendations from risk consultant awaiting Dr Pinto consult for shoulder pain supportive measures further recommendations based on clinical course BP may be pain mediated, she does not have symptoms of malignant hypertension at this time. History of Present Illness History of Present Illness Patient in acute distress secondary to her shoulder pain. The patient denies chest pain no palpitations no shortness of breath has been reported. Overall the patient seems to be stable nevertheless her pain is her most concern. Patient seen by cardiology recommendations greatly appreciated stable from the standpoint of view Vitals Vitals Vital Signs Date Time Temp Pulse Resp B/P (MAP) Pulse Ox O2 Delivery O2 Flow Rate FiO2 06/08/19 14:11 Room Air 06/08/19 13:53 67 158/68 06/08/19 11:00 98.7 16 93 98.7 06/07/19 13:57 2.0 Physical Exam General: Alert, Oriented X3, Cooperative, No acute distress Heart: Regular rate, Other (2/6 systolic murmur ) Lungs: Clear Abdomen: Soft, No tenderness Extremities: Normal pulses, Other (trace bilateral LE edema ) Skin: No significant lesion Labs LABS Laboratory Tests Test 06/07/19 14:55 Sodium Level 128 mmol/L (136-145) Potassium Level 3.6 mmol/L (3.5-5.1) Chloride Level 92 mmol/L (98-107) Carbon Dioxide Level 27 mmol/L (21-32) Anion Gap 9 (6-14) Blood Urea Nitrogen 11 mg/dL (7-20) Creatinine 1.1 mg/dL (0.6-1.0) Estimated GFR (Cockcroft-Gault) 46.9 BUN/Creatinine Ratio 10 (6-20) Glucose Level 135 mg/dL (70-99) Lactic Acid Level 1.9 mmol/L (0.4-2.0) Calcium Level 9.6 mg/dL (8.5-10.1) Magnesium Level 1.4 mg/dL (1.8-2.4) Total Bilirubin 0.9 mg/dL (0.2-1.0) Aspartate Amino Transf (AST/SGOT) 17 U/L (15-37) Alanine Aminotransferase (ALT/SGPT) 14 U/L (14-59) Alkaline Phosphatase 105 U/L (46-116) Creatine Kinase 17 U/L (26-192) Troponin I Quantitative < 0.017 ng/mL (0.000-0.055) YH-Kkg-[id number]-Type Natriuretic Peptide 1499 pg/mL (0-449) Total Protein 7.1 g/dL (6.4-8.2) Albumin 3.5 g/dL (3.4-5.0) Albumin/Globulin Ratio 1.0 (1.0-1.7) Triglycerides Level 42 mg/dL (0-150) Cholesterol Level 164 mg/dL (0-200) LDL Cholesterol, Calculated 103 mg/dL (0-100) VLDL Cholesterol, Calculated 8 mg/dL (0-40) Non-HDL Cholesterol Calculated 111 mg/dL (0-129) HDL Cholesterol 53 mg/dL (40-60) Cholesterol/HDL Ratio 3.1 Thyroid Stimulating Hormone (TSH) 1.689 uIU/mL (0.358-3.74) Review of Systems Review of Systems Pertinent as per history of present illness otherwise 14 point review of system is negative Assessment and Plan Assessmemt and Plan Problems Medical Problems: (1) Fall at home Status: Acute (2) Hypomagnesemia Status: Acute (3) Hyponatremia Status: Acute (4) Right shoulder strain Status: Acute (5) Tachyarrhythmia Status: Acute (6) Urinary tract infection Status: Acute Comment Review of Relevant I have reviewed the following items silver (where applicable) has been applied. Labs Laboratory Tests Test 06/07/19 13:30 06/07/19 13:40 06/07/19 14:55 Urine Collection Type Unknown Urine Color Yellow Urine Clarity Clear Urine pH 8.0 Urine Specific [place] 1.010 Urine Protein Negative mg/dL (NEG-TRACE) Urine Glucose (UA) Negative mg/dL (NEG) Urine Ketones (Stick) Negative mg/dL (NEG) Urine Blood Negative (NEG) Urine Nitrite Positive (NEG) Urine Bilirubin Negative (NEG) Urine Urobilinogen Dipstick 0.2 mg/dL (0.2 mg/dL) Urine Leukocyte Esterase Moderate (NEG) Urine RBC 0 /HPF (0-2) Urine WBC Tntc /HPF (0-4) Urine Squamous Epithelial Cells Mod /LPF Urine Bacteria Many /HPF (0-FEW) White Blood Count 14.7 x10^3/uL (4.0-11.0) Red Blood Count 4.50 x10^6/uL (3.50-5.40) Hemoglobin 12.8 g/dL (12.0-15.5) Hematocrit 37.8 % (36.0-47.0) Mean Corpuscular Volume 84 fL (79-100) Mean Corpuscular Hemoglobin 29 pg (25-35) Mean Corpuscular Hemoglobin Concent 34 g/dL (31-37) Red Cell Distribution Width 13.3 % (11.5-14.5) Platelet Count 423 x10^3/uL (140-400) Neutrophils (%) (Auto) 86 % (31-73) Lymphocytes (%) (Auto) 6 % (24-48) Monocytes (%) (Auto) 7 % (0-9) Eosinophils (%) (Auto) 0 % (0-3) Basophils (%) (Auto) 1 % (0-3) Neutrophils # (Auto) 12.7 x10^3/uL (1.8-7.7) Lymphocytes # (Auto) 0.8 x10^3/uL (1.0-4.8) Monocytes # (Auto) 1.1 x10^3/uL (0.0-1.1) Eosinophils # (Auto) 0.0 x10^3/uL (0.0-0.7) Basophils # (Auto) 0.1 x10^3/uL (0.0-0.2) Segmented Neutrophils % 89 % (35-66) Lymphocytes % 3 % (24-48) Monocytes % 8 % (0-10) Toxic Vacuolation Slight Platelet Estimate Increased (ADEQUATE) Platelet Clumps, EDTA Present Large Platelets Occ Giant Platelets Occ [place] Cells Occ Acanthocytes Occ Prothrombin Time 12.8 SEC (11.7-14.0) Prothromb Time International Ratio 1.0 (0.8-1.1) Activated Partial Thromboplast Time 32 SEC (24-38) Sodium Level 128 mmol/L (136-145) Potassium Level 3.6 mmol/L (3.5-5.1) Chloride Level 92 mmol/L (98-107) Carbon Dioxide Level 27 mmol/L (21-32) Anion Gap 9 (6-14) Blood Urea Nitrogen 11 mg/dL (7-20) Creatinine 1.1 mg/dL (0.6-1.0) Estimated GFR (Cockcroft-Gault) 46.9 BUN/Creatinine Ratio 10 (6-20) Glucose Level 135 mg/dL (70-99) Lactic Acid Level 1.9 mmol/L (0.4-2.0) Calcium Level 9.6 mg/dL (8.5-10.1) Magnesium Level 1.4 mg/dL (1.8-2.4) Total Bilirubin 0.9 mg/dL (0.2-1.0) Aspartate Amino Transf (AST/SGOT) 17 U/L (15-37) Alanine Aminotransferase (ALT/SGPT) 14 U/L (14-59) Alkaline Phosphatase 105 U/L (46-116) Creatine Kinase 17 U/L (26-192) Troponin I Quantitative < 0.017 ng/mL (0.000-0.055) OX-Iox-S-Type Natriuretic Peptide 1499 pg/mL (0-449) Total Protein 7.1 g/dL (6.4-8.2) Albumin 3.5 g/dL (3.4-5.0) Albumin/Globulin Ratio 1.0 (1.0-1.7) Triglycerides Level 42 mg/dL (0-150) Cholesterol Level 164 mg/dL (0-200) LDL Cholesterol, Calculated 103 mg/dL (0-100) VLDL Cholesterol, Calculated 8 mg/dL (0-40) Non-HDL Cholesterol Calculated 111 mg/dL (0-129) HDL Cholesterol 53 mg/dL (40-60) Cholesterol/HDL Ratio 3.1 Thyroid Stimulating Hormone (TSH) 1.689 uIU/mL (0.358-3.74) Laboratory Tests Test 06/07/19 14:55 Sodium Level 128 mmol/L (136-145) Potassium Level 3.6 mmol/L (3.5-5.1) Chloride Level 92 mmol/L (98-107) Carbon Dioxide Level 27 mmol/L (21-32) Anion Gap 9 (6-14) Blood Urea Nitrogen 11 mg/dL (7-20) Creatinine 1.1 mg/dL (0.6-1.0) Estimated GFR (Cockcroft-Gault) 46.9 BUN/Creatinine Ratio 10 (6-20) Glucose Level 135 mg/dL (70-99) Lactic Acid Level 1.9 mmol/L (0.4-2.0) Calcium Level 9.6 mg/dL (8.5-10.1) Magnesium Level 1.4 mg/dL (1.8-2.4) Total Bilirubin 0.9 mg/dL (0.2-1.0) Aspartate Amino Transf (AST/SGOT) 17 U/L (15-37) Alanine Aminotransferase (ALT/SGPT) 14 U/L (14-59) Alkaline Phosphatase 105 U/L (46-116) Creatine Kinase 17 U/L (26-192) Troponin I Quantitative < 0.017 ng/mL (0.000-0.055) OP-Xfu-[id number]-Type Natriuretic Peptide 1499 pg/mL (0-449) Total Protein 7.1 g/dL (6.4-8.2) Albumin 3.5 g/dL (3.4-5.0) Albumin/Globulin Ratio 1.0 (1.0-1.7) Triglycerides Level 42 mg/dL (0-150) Cholesterol Level 164 mg/dL (0-200) LDL Cholesterol, Calculated 103 mg/dL (0-100) VLDL Cholesterol, Calculated 8 mg/dL (0-40) Non-HDL Cholesterol Calculated 111 mg/dL (0-129) HDL Cholesterol 53 mg/dL (40-60) Cholesterol/HDL Ratio 3.1 Thyroid Stimulating Hormone (TSH) 1.689 uIU/mL (0.358-3.74) Medications Current Medications Ondansetron HCl (Zofran) 4 mg 1X ONCE IVP Last administered on 06/07/19at 13:56; Start 06/07/19 at 13:15; Stop 06/07/19 at 13:16; Status DC Fentanyl Citrate (Fentanyl 2ml Vial) 50 mcg 1X ONCE IVP Last administered on 06/07/19at 13:57; Start 06/07/19 at 13:15; Stop 06/07/19 at 13:16; Status DC Metoprolol Tartrate (Lopressor) 50 mg BID PO Last administered on 06/07/19at 21:02; Start 06/07/19 at 21:00; Stop 06/08/19 at 12:10; Status DC Magnesium Sulfate 50 ml @ 25 mls/hr 1X ONCE IV Last administered on 06/07/19at 18:45; Start 06/07/19 at 17:00; Stop 06/07/19 at 18:59; Status DC Fentanyl Citrate (Fentanyl 2ml Vial) 50 mcg PRN Q2HR PRN IV PAIN Last administered on 06/08/19at 07:58; Start 06/07/19 at 16:45 Sodium Chloride 1,000 ml @ 75 mls/hr [id number] IV ; Start 06/07/19 at 16:40; Stop 06/08/19 at 16:39 Influenza Virus Vaccine Quadrival (Afluria Quad 2019-20 (3yr Up) Syringe) 0.5 ml ONCE ONCE VAX IM Last administered on 06/07/19at 21:23; Start 06/07/19 at 18:00; Stop 06/07/19 at 18:01; Status DC Acetaminophen/ Hydrocodone Bitart (Lortab 5/325) 1 tab PRN Q4HRS PRN PO PAIN Last administered on 06/08/19at 14:11; Start 06/07/19 at 17:45 Aspirin (Jaci Aspirin) 325 mg HS PO Last administered on 06/07/19at 21:02; Start 06/07/19 at 21:00 Hydralazine HCl (Apresoline) 50 mg QID PO Last administered on 06/08/19at 13:53; Start 06/07/19 at 21:00 Meclizine HCl (Antivert) 25 mg PRN Q8HRS PRN PO dizziness; Start 06/07/19 at 17:45 Pantoprazole Sodium (Protonix) 40 mg DAILY PO Last administered on 06/08/19at 08:03; Start 06/08/19 at 09:00 Tramadol HCl (Ultram) 50 mg PRN QID PRN PO PAIN Last administered on 06/08/19at 10:32; Start 06/07/19 at 17:45 Amlodipine Besylate (Norvasc) 2.5 mg DAILY PO Last administered on 06/08/19at 08:04; Start 06/08/19 at 09:00; Stop 06/08/19 at 12:10; Status DC Vitamin D (Vitamin D3) 1,000 unit DAILY PO Last administered on 06/08/19at 08:04; Start 06/08/19 at 09:00 Zolpidem Tartrate (Ambien) 5 mg PRN QHS PRN PO INSOMNIA Last administered on 06/07/19at 23:53; Start 06/07/19 at 18:00 Losartan Potassium (Cozaar) 100 mg DAILY PO Last administered on 06/08/19at 08:05; Start 06/08/19 at 09:00 Ceftriaxone Sodium (Rocephin) 1 gm Q24H IVP Last administered on 06/07/19at 21:02; Start 06/07/19 at 19:45 Sodium Chloride 1,000 ml @ 75 mls/hr [id number] IV Last administered on 06/08/19at 10:10; Start 06/07/19 at 21:30 Amlodipine Besylate (Norvasc) 10 mg DAILY PO ; Start 06/08/19 at 12:15 Metoprolol Tartrate (Lopressor) 12.5 mg BID PO ; Start 06/08/19 at 21:00 Lactobacillus Rhamnosus (Culturelle) 1 cap BID PO ; Start 06/08/19 at 21:00 Active Scripts Active Meclizine Hcl 12.5 Mg Tablet 25 Mg PO PRN Q8HRS PRN 30 Days Losartan Potassium 100 Mg Tablet 100 Mg PO DAILY Reported Eszopiclone 1 Mg Tablet 1 Mg PO HS Vitamin D3 (Cholecalciferol (Vitamin D3)) 5,000 Unit Tab.rapdis 1 Tab PO DAILY 30 Days Aspirin 325 Mg Tablet 1 Tab PO HS Metoprolol Tartrate 25 Mg Tablet 1 Tab PO DAILY Hydralazine Hcl 50 Mg Tablet 50 Mg PO QID Amlodipine Besylate 2.5 Mg Tablet 2.5 Mg PO DAILY Pantoprazole Sodium 40 Mg Tablet.dr 40 Mg PO DAILY Tramadol Hcl 50 Mg Tablet 50 Mg PO PRN QID PRN Vitals/I & O Vital Sign - Last 24 Hours 06/07/19 06/07/19 06/07/19 06/07/19 15:15 15:45 16:30 16:45 Temp 98.5 98.5 Pulse 72 152 77 81 Resp 16 17 18 19 B/P (MAP) 181/74 (109) Pulse Ox 95 96 92 95 O2 Delivery Room Air 106/07/19 06/07/19 06/07/19 16:45 18:42 18:57 19:15 Temp 98.9 98.9 Pulse 72 Resp 18 20 B/P (MAP) 178/92 (120) Pulse Ox 95 96 96 O2 Delivery Room Air Room Air Room Air Room Air 06/07/19 06/07/19 06/07/19 06/07/19 20:00 21:02 21:03 21:03 Pulse 72 72 Resp 20 B/P (MAP) 178/92 178/92 Pulse Ox 96 O2 Delivery Room Air Room Air 06/07/19 06/07/19 06/07/19 06/08/19 22:17 22:41 23:59 01:00 Temp 99.0 99.0 Pulse 56 Resp 18 22 18 B/P (MAP) 126/57 (80) Pulse Ox 96 96 96 95 O2 Delivery Room Air Room Air Room Air Room Air 06/08/19 06/08/19 06/08/19 06/08/19 02:05 07:00 07:58 08:00 Temp 98.7 98.5 98.7 98.5 Pulse 47 55 Resp 16 18 B/P (MAP) 119/55 (76) 172/72 (105) Pulse Ox 95 93 O2 Delivery Room Air Room Air Room Air Room Air 06/08/19 06/08/19 06/08/19 06/08/19 08:04 08:05 08:28 10:26 Pulse 57 56 59 B/P (MAP) 172/72 172/72 176/61 O2 Delivery Room Air 06/08/19 06/08/19 06/08/19 06/08/19 10:32 11:00 11:32 13:53 Temp 98.7 98.7 Pulse 62 67 Resp 16 B/P (MAP) 161/67 (98) 158/68 Pulse Ox 93 O2 Delivery Room Air Room Air Room Air 06/08/19 14:11 O2 Delivery Room Air Intake and Output 06/07/19 06/07/19 06/08/19 15:00 23:00 07:00 Intake Total 170 ml 400 ml Output Total 600 ml Balance 170 ml -200 ml ADI BENITO MD Jun 08, 2019 14:53
[2019-06-08 15:00] VITALS: BP 151/62
--- NOTE | 2019-06-08 15:13 | NUR ---
SS following for discharge planning. SS reviewed pt chart. Pt is from home with spouse and is currently on room air. PT/OT ordered. PT recommending group home unit. Pt declining group home unit at this time. SS spoke with pt's spouse via phone. Pt's spouse understanding of recommendations and reported that he just was released from [facility] for his hip. Pt's spouse reported that he does not think he can talk pt into group home unit. Pt's spouse inquiring about home healthcare. SS discussed home healthcare. Pt's spouse reported that he would try and talk pt into something. SS will continue to follow for discharge planning.
[2019-06-08] MEDS ORDERED: methylPREDNISolone ACETATE 40 MG/ML VIAL. IM ONE ×2 (16:30→16:45)
[2019-06-08] MEDS ORDERED: BUPIVACAINE MPF 0.25% 10 ML VIAL. IJ ONE (16:30)
[2019-06-08 19:15] VITALS: BP 143/52
[2019-06-08] MEDS: DICLOFENAC SODIUM 1% TOPICAL GEL 100GM TUBE. TP SCH (20:35)
[2019-06-08] MEDS: ASPIRIN 325 MG TABLET PO SCH (20:35)
[2019-06-08] MEDS: LACTOBACILLUS RHAMNOSUS GG 1 CAPSULE. PO SCH (20:36)
[2019-06-08] MEDS: cefTRIAXone IV Push 1 GM VIAL. IVP SCH (20:36)
[2019-06-08] MEDS: METOPROLOL TART IMMED RELEASE 25 MG TABLET. PO SCH (20:37)
[2019-06-08] MEDS: ZOLPIDEM 5 MG TABLET. PO PRN (22:13)
[2019-06-08 23:15] VITALS: BP 151/58
[2019-06-09] MEDS: IV NORMAL SALINE 1000ML BAG 1,000 ML IV SCH (00:10)
--- NOTE | 2019-06-09 01:49 | CONS ---
DATE OF CONSULTATION: LOCATION: She is in room 200. ATTENDING PHYSICIAN: Dr. Roland. REASON FOR CONSULTATION: The patient was seen at the request of Dr. Roland for rehab evaluation. HISTORY OF PRESENT ILLNESS: This is an 88-year-old female known to me in the past. The patient was admitted on 06/07/2019 after she fell at home accidentally and struck her right shoulder, complains of pain and swelling and weakness in right shoulder. She was found in the Emergency Room with urinary tract infection, cardiac arrhythmia, also some ocular disturbances and hypomagnesemia and hyponatremia. The patient had radiological studies of her chest, which failed to reveal any acute abnormalities. She admits some pain in right lateral chest wall. CT scan of the brain failed to reveal any acute abnormalities and x-ray of her right shoulder failed to reveal any acute abnormalities, suspected rotator cuff calcific tendinitis. The patient with known carcinoma of breast, status post lumpectomy, left breast ectopic , cochlear implant, gastroesophageal reflux disease, hypercholesterolemia, and hypertension, KNOWN ALLERGIC TO CODEINE. The patient also had surgery to her left knee for dislocation, family history of hypertension. She lives with her , had two steps to enter the house. The patient also admits pain and stiffness of her left knee joint. She is being followed by physical therapy and occupational therapy. The patient prior to the fall has been independent with her mobility and self-care skills including driving, laundry, shopping, and meal preparation. The patient did walk for about 40 feet this morning with physical therapy with minimal assistance with bed mobility and transfers. Physical therapist recommended intermediate care unit transfer. Occupational therapy also saw her and felt like she can benefit from intermediate care unit. The patient is eager to go home. She apparently was at [facility] until recently. PHYSICAL EXAMINATION: The patient on physical examination today revealed an elderly female. She is alert, oriented to time, place, person and circumstance and follows commands appropriately, moves all 4 extremities voluntarily, significant pain on attempted movement of her right shoulder. She had obvious right shoulder and left knee joint effusion, crepitus on range of motion of both knee joints. She had significant weakness of right shoulder girdle muscles, seems to be having fairly good right shoulder external rotator strength, more weakness in shoulder abduction and flexion. She had diffuse tenderness to palpation at right shoulder and left knee. She had pain on range of motion of left knee joint. She had pain free range of motion of both hip joints. She had equal perception of touch and pinprick sensation bilaterally. Deep tendon reflexes are brisk at both upper extremities and at knees, absent at both ankles. She requires some help with bed mobility. I have not tested her transfers or ambulation skills at present time. 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 The patient with known gastroesophageal reflux disease, hypercholesterolemia, hypertension, status post left breast lumpectomy for carcinoma and cochlear implant placement. RECOMMENDATIONS: At her request, I have injected painful right shoulder joint and left knee joint under aseptic skin technique after skin preparation using alcohol swab using 4 mL of 0.25% Marcaine solution mixed with 2 mL of Depo-Medrol 40 mg per 1 mL solution and she tolerated the procedure satisfactorily without any side effects to let her use ice packs to her shoulder and arm sling and I have suggested her and also encouraged her to use hinged knee brace to her left knee while up walking and she can benefit from use of a cane or walker and from intermediate care unit, transfer to our home health if she insists on going home. I have reviewed with her a home program of physical modalities and stretching exercise to her right shoulder and Codman's exercise to her right shoulder and isometric strengthening exercise to her lower extremity muscle groups. I would like to consider lubrication injection to her left knee if the pain persists. Dr. Roland, I appreciate asking me to participate in the care of this interesting patient. I will be glad to see her for followup with you on an as needed basis. NACHO PEMBERTON MD DR: GRICEL/justina JOB#: [id number] / [id number]
[2019-06-09 03:45] VITALS: BP 139/55
[2019-06-09 07:13] VITALS: BP 169/72
[2019-06-09 08:08] LABS: BASO % 0 % (0-3); EOS % 0 % (0-3); HEMATOCRIT 34.1 % (36.0-47.0); HEMOGLOBIN 11.4 g/dL (12.0-15.5); LYMPH # 0.6 x10^3/uL (1.0-4.8); LYMPH % 5 % (24-48); MEAN CORPUSCULAR HEMOGLOBIN 28 pg (25-35); MEAN CORPUSCULAR HGB CONC 33 g/dL (31-37); MEAN CORPUSCULAR VOLUME 83 fL (79-100); MONO # 0.5 x10^3/uL (0.0-1.1); MONO % 5 % (0-9); NEUT # 10.3 x10^3/uL (1.8-7.7); NEUT % 90 % (31-73); PLATELET COUNT 349 x10^3/uL (140-400); RED CELL DISTRIBUTION WIDTH 13.2 % (11.5-14.5); WHITE BLOOD COUNT 11.4 x10^3/uL (4.0-11.0)
[2019-06-09] MEDS: LACTOBACILLUS RHAMNOSUS GG 1 CAPSULE. PO SCH (08:16)
[2019-06-09] MEDS: amLODIPine BESYLATE 10 MG TABLET PO SCH (08:16)
[2019-06-09] MEDS: PANTOPRAZOLE 40 MG TABLET.DR. PO SCH (08:16)
[2019-06-09] MEDS: LOSARTAN POTASSIUM 50 MG TABLET. PO SCH (08:16)
[2019-06-09] MEDS: CHOLECALCIFEROL (VITAMIN D3) 1,000 UNIT TABLET PO SCH (08:16)
[2019-06-09 08:17] LABS: CALCIUM 9.1 mg/dL (8.5-10.1); CREATININE 0.9 mg/dL (0.6-1.0); GFR 59.1; POTASSIUM 3.8 mmol/L (3.5-5.1)
[2019-06-09] MEDS: METOPROLOL TART IMMED RELEASE 25 MG TABLET. PO SCH (08:17)
[2019-06-09] MEDS: DICLOFENAC SODIUM 1% TOPICAL GEL 100GM TUBE. TP SCH (08:20)
[2019-06-09] MEDS ORDERED: LACT1CAP19 PO (09:37)
[2019-06-09] MEDS ORDERED: CEFD300C PO (09:37)
[2019-06-09] MEDS ORDERED: DICL100G18 TP (09:37)
[2019-06-09] MEDS ORDERED: AMLO2.5T5 PO (09:37)
--- NOTE | 2019-06-09 10:08 | PDOC3 ---
Discharge Summary Visit Information Date of Admission: Jun 07, 2019 Date of Discharge: Jun 09, 2019 Admitting Diagnosis Comment: 1) Neck pain (2) Angina at rest (3) Skin tear (4) TIA (transient ischemic attack) (5) TIA (transient ischemic attack) (6) Vertigo (7) Hypomagnesemia (8) Urinary tract infection (9) Hyponatremia (10) Tachyarrhythmia (11) Right shoulder strain (12) Fall at home Final Diagnosis Problems Medical Problems: (1) Fall at home Status: Acute (2) Hypomagnesemia Status: Acute (3) Hyponatremia Status: Acute (4) Right shoulder strain Status: Acute (5) Tachyarrhythmia Status: Acute (6) Urinary tract infection Status: Acute Brief Hospital Course Allergies Allergies Coded Allergies Type Severity Reaction Last Updated Verified codeine Allergy Intermediate 09/11/15 Yes Vital Signs Vital Signs Date Time Temp Pulse Resp B/P (MAP) Pulse Ox O2 Delivery O2 Flow Rate FiO2 06/09/19 08:17 64 169/72 06/09/19 08:00 Room Air 2.0 06/09/19 07:13 97.5 94 97.5 06/09/19 03:45 18 Lab Results Laboratory Tests Test 06/07/19 13:30 06/07/19 13:40 06/07/19 14:55 06/09/19 07:52 Urine Collection Type Unknown Urine Color Yellow Urine Clarity Clear Urine pH 8.0 Urine Specific Marcy 1.010 Urine Protein Negative mg/dL (NEG-TRACE) Urine Glucose (UA) Negative mg/dL (NEG) Urine Ketones (Stick) Negative mg/dL (NEG) Urine Blood Negative (NEG) Urine Nitrite Positive (NEG) Urine Bilirubin Negative (NEG) Urine Urobilinogen Dipstick 0.2 mg/dL (0.2 mg/dL) Urine Leukocyte Esterase Moderate (NEG) Urine RBC 0 /HPF (0-2) Urine WBC Tntc /HPF (0-4) Urine Squamous Epithelial Cells Mod /LPF Urine Bacteria Many /HPF (0-FEW) White Blood Count 14.7 x10^3/uL (4.0-11.0) 11.4 x10^3/uL (4.0-11.0) Red Blood Count 4.50 x10^6/uL (3.50-5.40) 4.10 x10^6/uL (3.50-5.40) Hemoglobin 12.8 g/dL (12.0-15.5) 11.4 g/dL (12.0-15.5) Hematocrit 37.8 % (36.0-47.0) 34.1 % (36.0-47.0) Mean Corpuscular Volume 84 fL (79-100) 83 fL (79-100) Mean Corpuscular Hemoglobin 29 pg (25-35) 28 pg (25-35) Mean Corpuscular Hemoglobin Concent 34 g/dL (31-37) 33 g/dL (31-37) Red Cell Distribution Width 13.3 % (11.5-14.5) 13.2 % (11.5-14.5) Platelet Count 423 x10^3/uL (140-400) 349 x10^3/uL (140-400) Neutrophils (%) (Auto) 86 % (31-73) 90 % (31-73) Lymphocytes (%) (Auto) 6 % (24-48) 5 % (24-48) Monocytes (%) (Auto) 7 % (0-9) 5 % (0-9) Eosinophils (%) (Auto) 0 % (0-3) 0 % (0-3) Basophils (%) (Auto) 1 % (0-3) 0 % (0-3) Neutrophils # (Auto) 12.7 x10^3/uL (1.8-7.7) 10.3 x10^3/uL (1.8-7.7) Lymphocytes # (Auto) 0.8 x10^3/uL (1.0-4.8) 0.6 x10^3/uL (1.0-4.8) Monocytes # (Auto) 1.1 x10^3/uL (0.0-1.1) 0.5 x10^3/uL (0.0-1.1) Eosinophils # (Auto) 0.0 x10^3/uL (0.0-0.7) 0.0 x10^3/uL (0.0-0.7) Basophils # (Auto) 0.1 x10^3/uL (0.0-0.2) 0.0 x10^3/uL (0.0-0.2) Segmented Neutrophils % 89 % (35-66) Lymphocytes % 3 % (24-48) Monocytes % 8 % (0-10) Toxic Vacuolation Slight Platelet Estimate Increased (ADEQUATE) Platelet Clumps, EDTA Present Large Platelets Occ Giant Platelets Occ Nursery Cells Occ Acanthocytes Occ Prothrombin Time 12.8 SEC (11.7-14.0) Prothromb Time International Ratio 1.0 (0.8-1.1) Activated Partial Thromboplast Time 32 SEC (24-38) Sodium Level 128 mmol/L (136-145) 131 mmol/L (136-145) Potassium Level 3.6 mmol/L (3.5-5.1) 3.8 mmol/L (3.5-5.1) Chloride Level 92 mmol/L (98-107) 95 mmol/L (98-107) Carbon Dioxide Level 27 mmol/L (21-32) 25 mmol/L (21-32) Anion Gap 9 (6-14) 11 (6-14) Blood Urea Nitrogen 11 mg/dL (7-20) 15 mg/dL (7-20) Creatinine 1.1 mg/dL (0.6-1.0) 0.9 mg/dL (0.6-1.0) Estimated GFR (Cockcroft-Gault) 46.9 59.1 BUN/Creatinine Ratio 10 (6-20) Glucose Level 135 mg/dL (70-99) 160 mg/dL (70-99) Lactic Acid Level 1.9 mmol/L (0.4-2.0) Calcium Level 9.6 mg/dL (8.5-10.1) 9.1 mg/dL (8.5-10.1) Magnesium Level 1.4 mg/dL (1.8-2.4) Total Bilirubin 0.9 mg/dL (0.2-1.0) Aspartate Amino Transf (AST/SGOT) 17 U/L (15-37) Alanine Aminotransferase (ALT/SGPT) 14 U/L (14-59) Alkaline Phosphatase 105 U/L (46-116) Creatine Kinase 17 U/L (26-192) Troponin I Quantitative < 0.017 ng/mL (0.000-0.055) XF-Ksp-P-Type Natriuretic Peptide 1499 pg/mL (0-449) Total Protein 7.1 g/dL (6.4-8.2) Albumin 3.5 g/dL (3.4-5.0) Albumin/Globulin Ratio 1.0 (1.0-1.7) Triglycerides Level 42 mg/dL (0-150) Cholesterol Level 164 mg/dL (0-200) LDL Cholesterol, Calculated 103 mg/dL (0-100) VLDL Cholesterol, Calculated 8 mg/dL (0-40) Non-HDL Cholesterol Calculated 111 mg/dL (0-129) HDL Cholesterol 53 mg/dL (40-60) Cholesterol/HDL Ratio 3.1 Thyroid Stimulating Hormone (TSH) 1.689 uIU/mL (0.358-3.74) Free Thyroxine 1.34 ng/dL (0.76-1.46) Laboratory Tests Test 06/09/19 07:52 White Blood Count 11.4 x10^3/uL (4.0-11.0) Red Blood Count 4.10 x10^6/uL (3.50-5.40) Hemoglobin 11.4 g/dL (12.0-15.5) Hematocrit 34.1 % (36.0-47.0) Mean Corpuscular Volume 83 fL (79-100) Mean Corpuscular Hemoglobin 28 pg (25-35) Mean Corpuscular Hemoglobin Concent 33 g/dL (31-37) Red Cell Distribution Width 13.2 % (11.5-14.5) Platelet Count 349 x10^3/uL (140-400) Neutrophils (%) (Auto) 90 % (31-73) Lymphocytes (%) (Auto) 5 % (24-48) Monocytes (%) (Auto) 5 % (0-9) Eosinophils (%) (Auto) 0 % (0-3) Basophils (%) (Auto) 0 % (0-3) Neutrophils # (Auto) 10.3 x10^3/uL (1.8-7.7) Lymphocytes # (Auto) 0.6 x10^3/uL (1.0-4.8) Monocytes # (Auto) 0.5 x10^3/uL (0.0-1.1) Eosinophils # (Auto) 0.0 x10^3/uL (0.0-0.7) Basophils # (Auto) 0.0 x10^3/uL (0.0-0.2) Sodium Level 131 mmol/L (136-145) Potassium Level 3.8 mmol/L (3.5-5.1) Chloride Level 95 mmol/L (98-107) Carbon Dioxide Level 25 mmol/L (21-32) Anion Gap 11 (6-14) Blood Urea Nitrogen 15 mg/dL (7-20) Creatinine 0.9 mg/dL (0.6-1.0) Estimated GFR (Cockcroft-Gault) 59.1 Glucose Level 160 mg/dL (70-99) Calcium Level 9.1 mg/dL (8.5-10.1) Free Thyroxine 1.34 ng/dL (0.76-1.46) Brief Hospital Course History of Present Illness: HPI: This is an elderly female who fell yesterday struck her right shoulder Since then the right shoulder has been swollen and painful She was scheduled to see Dr. Akers for an injection but the family brought her to the hospital because the pain was to much while in the ER she's noted to have a UTI She also had some arrhythmias in the ER Some noted to have some ocular disturbances with hypomagnesemia and hyponatremia She rates her pain at 9 out of 10 Moving makes it worse sitting still makes it better [id number]-kljdoyh meds did not help Describes pain is very irritating I discussed case with ER physician we are admitting the patient with consultation to cardiology Ms. Cates is a 88 old female who presented with shoulder pain to the ER. The patient was noted to have some arrhythmias in the emergency department reason why she was admitted to the cardiac floor. Patient was evaluated by client support consultant with no changes to her current medication treatment plan. The patient was deemed appropriate from their standpoint of view to be dismissed, the patient initially came in for a right shoulder pain chief complain with has been addressed by Dr. Pinto with steroid injection. The patient has had improvement of her discomfort serendipitously she was also diagnosed with a urinary tract infection in the emergency department she did not percent delta mental status she did not percent fevers signs of hemodynamic instability nor sepsis. The patient was started on Rocephin promptly and results of her microbiology revealed gram-negative rods greater than 100 colony-forming units per mL. At the time of this note final results are still pending blood cultures were negative. The patient will continue with Cefdinir at home and I have encourage her to follow up with her primary care physician within one week. Signs and symptoms of alarm discussed with the patient prior to dismissal is at bedside. The patient was offered home health given that she has been having frequent falls and unfortunately the patient has declined at the present time. She is well a andre of the risks of her decision and she is capable of making her own decisions at this time she is not presenting any neurological deficits and is in good spirits to be discharged home. All concerns were addressed the best of my abilities Assessment Assessment Left shoulder strain Gram negative rods UTI frequent falls declined SNU and Home health services Discharge Information Condition at Discharge: Improved Follow Up: Weeks Disposition/Orders: D/C to Home Scheduled Amlodipine Besylate (Amlodipine Besylate) 2.5 Mg Tablet, 5 MG PO DAILY for HTN for 30 Days, #60 Prescribed by: ADI BENITO MD on 06/09/19 0937 Aspirin (Aspirin) 325 Mg Tablet, 1 TAB PO HS for HEART, #30 Ref 5 (Reported) Entered as Reported by: BENJY POWELL on 06/07/191723 Last Action: Continued on 06/07/191745 by BENJY POWELL Cefdinir (Cefdinir) 300 Mg Capsule, 1 CAP PO BID for UTI for 3 Days, #6 Prescribed by: ADI BENITO MD on 06/09/1937 Cholecalciferol (Vitamin D3) (Vitamin D3) 5,000 Unit Tab.rapdis, 1 TAB PO DAILY for SUPPLEMENT for 30 Days, #30 Ref 0 (Reported) Entered as Reported by: BENJY POWELL on 06/07/191725 Last Action: Converted on 06/07/191745 by BENJY POWELL Diclofenac Sodium (Voltaren) 100 Gm Gel..gram., 1 AGUSTO TP BID for Shoulder pain for 10 Days, #20 Prescribed by: ADI BENITO MD on 06/09/19 0937 Eszopiclone (Eszopiclone) 1 Mg Tablet, 1 MG PO HS for INSOMNIA, (Reported) Entered as Reported by: BENJY POWELL on 06/07/191726 Last Action: Converted on 06/07/191745 by BENJY POWELL Hydralazine Hcl (Hydralazine Hcl) 50 Mg Tablet, 50 MG PO QID for HTN, (Reported) Entered as Reported by: BENJY POWELL on 06/07/191720 Last Action: Continued on 06/07/191745 by BENJY POWELL Lactobacillus Rhamnosus Gg (Culturelle) 1 Each Cap.sprink, 1 CAP PO BID for probiotic for 7 Days, #14 Prescribed by: ADI BENITO MD on 06/09/19 0937 Losartan Potassium (Losartan Potassium) 100 Mg Tablet, 100 MG PO DAILY, #60 Ref 2 Prescribed by: YARIEL ZEE on 09/11/15 1342 Last Action: Converted on 06/07/191745 by BENJY POWELL Metoprolol Tartrate (Metoprolol Tartrate) 25 Mg Tablet, 1 TAB PO DAILY for HTN, #180 Ref 1 (Reported) Entered as Reported by: BENJY POWELL on 06/07/191720 Last Action: New Order on 06/07/191720 by BENJY POWELL Pantoprazole Sodium (Pantoprazole Sodium) 40 Mg Tablet.dr, 40 MG PO DAILY for gerd, (Reported) Entered as Reported by: BENJY POWELL on 06/07/191720 Last Action: Continued on 06/07/191745 by BENJY POWELL Scheduled PRN Meclizine Hcl (Meclizine Hcl) 12.5 Mg Tablet, 25 MG PO PRN Q8HRS PRN for dizziness for 30 Days Prescribed by: SAGAR JOEL on 07/09/16 0909 Last Action: Continued on 06/07/191745 by BENJY POWELL Tramadol Hcl (Tramadol Hcl) 50 Mg Tablet, 50 MG PO PRN QID PRN for PAIN, (Reported) Entered as Reported by: MAXX BARRY on 01/25/15 1552 Last Action: Continued on 06/07/191745 by ADI ERAZO MD Jun 09, 2019 10:08
--- NOTE | 2019-06-09 11:13 | PDOC ---
PROGRESS NOTES Subjective Subjective She admits less pain in her right shoulder and left knee,but admits continued right shoulder weakness. Objective Objective Vital Signs Date Time Temp Pulse Resp B/P (MAP) Pulse Ox O2 Delivery O2 Flow Rate FiO2 06/09/19 08:17 64 169/72 06/09/19 08:00 Room Air 2.0 06/09/19 07:13 97.5 94 97.5 06/09/19 03:45 18 Intake and Output 06/09/19 07:00 Intake Total 800 ml Output Total 100 ml Balance 700 ml Intake Oral 800 ml Output Urine Total 100 ml # Voids 4 Physical Exam Physical Exam She is alert supine in bed and continues with significant weakness of right shoulder abduction and flexion but had good external rotation. She is refusing to go to SNF. Assessment Assessment 7.Acuter torn right rotator cuff. 8.Painful osteoarthritis of both knee joints. 9.Peripheral neuropathy. Problems Medical Problems: (1) Fall at home Status: Acute (2) Hypomagnesemia Status: Acute (3) Hyponatremia Status: Acute (4) Right shoulder strain Status: Acute (5) Tachyarrhythmia Status: Acute (6) Urinary tract infection Status: Acute Plan Plan of Care To arrange for home health physical and occupational therapy and nursing follow up. Comment Review of Relevant I have reviewed the following items silver (where applicable) has been applied. Labs Laboratory Tests Test 06/07/19 13:30 06/07/19 13:40 06/07/19 14:55 06/09/19 07:52 Urine Collection Type Unknown Urine Color Yellow Urine Clarity Clear Urine pH 8.0 Urine Specific [place] 1.010 Urine Protein Negative mg/dL (NEG-TRACE) Urine Glucose (UA) Negative mg/dL (NEG) Urine Ketones (Stick) Negative mg/dL (NEG) Urine Blood Negative (NEG) Urine Nitrite Positive (NEG) Urine Bilirubin Negative (NEG) Urine Urobilinogen Dipstick 0.2 mg/dL (0.2 mg/dL) Urine Leukocyte Esterase Moderate (NEG) Urine RBC 0 /HPF (0-2) Urine WBC Tntc /HPF (0-4) Urine Squamous Epithelial Cells Mod /LPF Urine Bacteria Many /HPF (0-FEW) White Blood Count 14.7 x10^3/uL (4.0-11.0) 11.4 x10^3/uL (4.0-11.0) Red Blood Count 4.50 x10^6/uL (3.50-5.40) 4.10 x10^6/uL (3.50-5.40) Hemoglobin 12.8 g/dL (12.0-15.5) 11.4 g/dL (12.0-15.5) Hematocrit 37.8 % (36.0-47.0) 34.1 % (36.0-47.0) Mean Corpuscular Volume 84 fL (79-100) 83 fL (79-100) Mean Corpuscular Hemoglobin 29 pg (25-35) 28 pg (25-35) Mean Corpuscular Hemoglobin Concent 34 g/dL (31-37) 33 g/dL (31-37) Red Cell Distribution Width 13.3 % (11.5-14.5) 13.2 % (11.5-14.5) Platelet Count 423 x10^3/uL (140-400) 349 x10^3/uL (140-400) Neutrophils (%) (Auto) 86 % (31-73) 90 % (31-73) Lymphocytes (%) (Auto) 6 % (24-48) 5 % (24-48) Monocytes (%) (Auto) 7 % (0-9) 5 % (0-9) Eosinophils (%) (Auto) 0 % (0-3) 0 % (0-3) Basophils (%) (Auto) 1 % (0-3) 0 % (0-3) Neutrophils # (Auto) 12.7 x10^3/uL (1.8-7.7) 10.3 x10^3/uL (1.8-7.7) Lymphocytes # (Auto) 0.8 x10^3/uL (1.0-4.8) 0.6 x10^3/uL (1.0-4.8) Monocytes # (Auto) 1.1 x10^3/uL (0.0-1.1) 0.5 x10^3/uL (0.0-1.1) Eosinophils # (Auto) 0.0 x10^3/uL (0.0-0.7) 0.0 x10^3/uL (0.0-0.7) Basophils # (Auto) 0.1 x10^3/uL (0.0-0.2) 0.0 x10^3/uL (0.0-0.2) Segmented Neutrophils % 89 % (35-66) Lymphocytes % 3 % (24-48) Monocytes % 8 % (0-10) Toxic Vacuolation Slight Platelet Estimate Increased (ADEQUATE) Platelet Clumps, EDTA Present Large Platelets Occ Giant Platelets Occ [place] Cells Occ Acanthocytes Occ Prothrombin Time 12.8 SEC (11.7-14.0) Prothromb Time International Ratio 1.0 (0.8-1.1) Activated Partial Thromboplast Time 32 SEC (24-38) Sodium Level 128 mmol/L (136-145) 131 mmol/L (136-145) Potassium Level 3.6 mmol/L (3.5-5.1) 3.8 mmol/L (3.5-5.1) Chloride Level 92 mmol/L (98-107) 95 mmol/L (98-107) Carbon Dioxide Level 27 mmol/L (21-32) 25 mmol/L (21-32) Anion Gap 9 (6-14) 11 (6-14) Blood Urea Nitrogen 11 mg/dL (7-20) 15 mg/dL (7-20) Creatinine 1.1 mg/dL (0.6-1.0) 0.9 mg/dL (0.6-1.0) Estimated GFR (Cockcroft-Gault) 46.9 59.1 BUN/Creatinine Ratio 10 (6-20) Glucose Level 135 mg/dL (70-99) 160 mg/dL (70-99) Lactic Acid Level 1.9 mmol/L (0.4-2.0) Calcium Level 9.6 mg/dL (8.5-10.1) 9.1 mg/dL (8.5-10.1) Magnesium Level 1.4 mg/dL (1.8-2.4) Total Bilirubin 0.9 mg/dL (0.2-1.0) Aspartate Amino Transf (AST/SGOT) 17 U/L (15-37) Alanine Aminotransferase (ALT/SGPT) 14 U/L (14-59) Alkaline Phosphatase 105 U/L (46-116) Creatine Kinase 17 U/L (26-192) Troponin I Quantitative < 0.017 ng/mL (0.000-0.055) XN-Vmp-O-Type Natriuretic Peptide 1499 pg/mL (0-449) Total Protein 7.1 g/dL (6.4-8.2) Albumin 3.5 g/dL (3.4-5.0) Albumin/Globulin Ratio 1.0 (1.0-1.7) Triglycerides Level 42 mg/dL (0-150) Cholesterol Level 164 mg/dL (0-200) LDL Cholesterol, Calculated 103 mg/dL (0-100) VLDL Cholesterol, Calculated 8 mg/dL (0-40) Non-HDL Cholesterol Calculated 111 mg/dL (0-129) HDL Cholesterol 53 mg/dL (40-60) Cholesterol/HDL Ratio 3.1 Thyroid Stimulating Hormone (TSH) 1.689 uIU/mL (0.358-3.74) Free Thyroxine 1.34 ng/dL (0.76-1.46) Laboratory Tests Test 06/09/19 07:52 White Blood Count 11.4 x10^3/uL (4.0-11.0) Red Blood Count 4.10 x10^6/uL (3.50-5.40) Hemoglobin 11.4 g/dL (12.0-15.5) Hematocrit 34.1 % (36.0-47.0) Mean Corpuscular Volume 83 fL (79-100) Mean Corpuscular Hemoglobin 28 pg (25-35) Mean Corpuscular Hemoglobin Concent 33 g/dL (31-37) Red Cell Distribution Width 13.2 % (11.5-14.5) Platelet Count 349 x10^3/uL (140-400) Neutrophils (%) (Auto) 90 % (31-73) Lymphocytes (%) (Auto) 5 % (24-48) Monocytes (%) (Auto) 5 % (0-9) Eosinophils (%) (Auto) 0 % (0-3) Basophils (%) (Auto) 0 % (0-3) Neutrophils # (Auto) 10.3 x10^3/uL (1.8-7.7) Lymphocytes # (Auto) 0.6 x10^3/uL (1.0-4.8) Monocytes # (Auto) 0.5 x10^3/uL (0.0-1.1) Eosinophils # (Auto) 0.0 x10^3/uL (0.0-0.7) Basophils # (Auto) 0.0 x10^3/uL (0.0-0.2) Sodium Level 131 mmol/L (136-145) Potassium Level 3.8 mmol/L (3.5-5.1) Chloride Level 95 mmol/L (98-107) Carbon Dioxide Level 25 mmol/L (21-32) Anion Gap 11 (6-14) Blood Urea Nitrogen 15 mg/dL (7-20) Creatinine 0.9 mg/dL (0.6-1.0) Estimated GFR (Cockcroft-Gault) 59.1 Glucose Level 160 mg/dL (70-99) Calcium Level 9.1 mg/dL (8.5-10.1) Free Thyroxine 1.34 ng/dL (0.76-1.46) Microbiology 06/08/19 Blood Culture - Preliminary, Resulted NO GROWTH AFTER 1 DAY 06/07/19 Urine Culture - Preliminary, Resulted 06/07/19 Urine Culture Result 1 (GIANNI) - Preliminary, Resulted Medications Current Medications Ondansetron HCl (Zofran) 4 mg 1X ONCE IVP Last administered on 06/07/19at 13:56; Start 06/07/19 at 13:15; Stop 06/07/19 at 13:16; Status DC Fentanyl Citrate (Fentanyl 2ml Vial) 50 mcg 1X ONCE IVP Last administered on 06/07/19at 13:57; Start 06/07/19 at 13:15; Stop 06/07/19 at 13:16; Status DC Metoprolol Tartrate (Lopressor) 50 mg BID PO Last administered on 06/07/19at 21:02; Start 06/07/19 at 21:00; Stop 06/08/19 at 12:10; Status DC Magnesium Sulfate 50 ml @ 25 mls/hr 1X ONCE IV Last administered on 06/07/19at 18:45; Start 06/07/19 at 17:00; Stop 06/07/19 at 18:59; Status DC Fentanyl Citrate (Fentanyl 2ml Vial) 50 mcg PRN Q2HR PRN IV PAIN Last administe red on 06/08/19at 07:58; Start 06/07/19 at 16:45 Sodium Chloride 1,000 ml @ 75 mls/hr [id number] IV ; Start 06/07/19 at 16:40; Sto p 06/08/19 at 16:39; Status DC Influenza Virus Vaccine Quadrival (Afluria Quad 2019-20 (3yr Up) Syringe) 0.5 ml ONCE ONCE VAX IM Last administered on 06/07/19at 21:23; Start 06/07/19 at 18:00; Stop 06/07/19 at 18:01; Status DC Acetaminophen/ Hydrocodone Bitart (Lortab 5/325) 1 tab PRN Q4HRS PRN PO PAIN Last administered on 06/08/19at 14:11; Start 06/07/19 at 17:45 Aspirin (Jaci Aspirin) 325 mg HS PO Last administered on 06/08/19at 20:35; Start 06/07/19 at 21:00 Hydralazine HCl (Apresoline) 50 mg QID PO Last administered on 06/09/19at 08:16; Start 06/07/19 at 21:00 Meclizine HCl (Antivert) 25 mg PRN Q8HRS PRN PO dizziness; Start 06/07/19 at 17:45 Pantoprazole Sodium (Protonix) 40 mg DAILY PO Last administered on 06/09/19at 08:16; Start 06/08/19 at 09:00 Tramadol HCl (Ultram) 50 mg PRN QID PRN PO PAIN Last administered on 06/08/19at 20:39; Start 06/07/19 at 17:45 Amlodipine Besylate (Norvasc) 2.5 mg DAILY PO Last administered on 06/08/19at 08:04; Start 06/08/19 at 09:00; Stop 06/08/19 at 12:10; Status DC Vitamin D (Vitamin D3) 1,000 unit DAILY PO Last administered on 06/09/19at 08:16; Start 06/08/19 at 09:00 Zolpidem Tartrate (Ambien) 5 mg PRN QHS PRN PO INSOMNIA Last administered on 06/08/19at 22:13; Start 06/07/19 at 18:00 Losartan Potassium (Cozaar) 100 mg DAILY PO Last administered on 06/09/19at 08:16; Start 06/08/19 at 09:00 Ceftriaxone Sodium (Rocephin) 1 gm Q24H IVP Last administered on 06/08/19at 20:36; Start 06/07/19 at 19:45 Sodium Chloride 1,000 ml @ 75 mls/hr [id number] IV Last administered on 06/08/19at 10:10; Start 06/07/19 at 21:30 Amlodipine Besylate (Norvasc) 10 mg DAILY PO Last administered on 06/09/19at 08:16; Start 06/08/19 at 12:15 Metoprolol Tartrate (Lopressor) 12.5 mg BID PO Last administered on 06/09/19at 08:17; Start 06/08/19 at 21:00 Lactobacillus Rhamnosus (Culturelle) 1 cap BID PO Last administered on 06/09/19at 08:16; Start 06/08/19 at 21:00 Methylprednisolone Acetate (DEPO-Medrol 40MG VIAL) 40 mg 1X ONCE IM Last administered on 06/08/19at 16:30; Start 06/08/19 at 16:30; Stop 06/08/19 at 16:31; Status DC Bupivacaine HCl (Sensorcaine-Mpf 0.25%) 10 ml 1X ONCE IJ Last administered on 06/08/19at 16:30; Start 06/08/19 at 16:30; Stop 06/08/19 at 16:31; Status DC Methylprednisolone Acetate (DEPO-Medrol 40MG VIAL) 40 mg 1X ONCE IM Last administered on 06/08/19at 16:45; Start 06/08/19 at 16:45; Stop 06/08/19 at 16:46; Status DC Diclofenac Sodium (Voltaren) 1 mckenna BID TP Last administered on 06/09/19at 08:20; Start 06/08/19 at 21:00 Active Scripts Active Cefdinir 300 Mg Capsule 1 Cap PO BID 3 Days Culturelle (Lactobacillus Rhamnosus Gg) 1 Each Cap.sprink 1 Cap PO BID 7 Days Voltaren (Diclofenac Sodium) 100 Gm Gel..gram. 1 Mckenna TP BID 10 Days Amlodipine Besylate 2.5 Mg Tablet 5 Mg PO DAILY 30 Days Meclizine Hcl 12.5 Mg Tablet 25 Mg PO PRN Q8HRS PRN 30 Days Losartan Potassium 100 Mg Tablet 100 Mg PO DAILY Reported Eszopiclone 1 Mg Tablet 1 Mg PO HS Vitamin D3 (Cholecalciferol (Vitamin D3)) 5,000 Unit Tab.rapdis 1 Tab PO DAILY 30 Days Aspirin 325 Mg Tablet 1 Tab PO HS Metoprolol Tartrate 25 Mg Tablet 1 Tab PO DAILY Hydralazine Hcl 50 Mg Tablet 50 Mg PO QID Pantoprazole Sodium 40 Mg Tablet.dr 40 Mg PO DAILY Tramadol Hcl 50 Mg Tablet 50 Mg PO PRN QID PRN Vitals/I & O Vital Sign - Last 24 Hours 06/08/19 06/08/19 06/08/19 06/08/19 11:32 13:53 14:11 15:00 Temp 100.4 100.4 Pulse 67 68 Resp 16 B/P (MAP) 158/68 151/62 (91) Pulse Ox 65 O2 Delivery Room Air Room Air Room Air 06/08/19 06/08/19 06/08/19 06/08/19 15:11 17:26 19:15 20:00 Temp 99.4 99.4 Pulse 67 75 Resp 18 B/P (MAP) 149/63 143/52 (82) Pulse Ox 91 O2 Delivery Room Air Room Air Room Air 06/08/19 06/08/19 06/08/19 06/08/19 20:36 20:37 20:39 21:45 Pulse 75 75 Resp 20 20 B/P (MAP) 143/52 143/52 Pulse Ox 91 91 O2 Delivery Room Air Room Air 06/08/19 06/09/19 06/09/19 06/09/19 23:15 03:45 07:13 08:00 Temp 99.1 98.9 97.5 99.1 98.9 97.5 Pulse 69 68 64 Resp 18 18 B/P (MAP) 151/58 (89) 139/55 (83) 169/72 (104) Pulse Ox 92 91 94 O2 Delivery Room Air Room Air Room Air Room Air O2 Flow Rate 2.0 06/09/19 06/09/19 06/09/19 06/09/19 08:16 08:16 08:16 08:17 Pulse 64 64 64 64 B/P (MAP) 169/72 169/72 169/72 169/72 Intake and Output 06/08/19 06/08/19 06/09/19 15:00 23:00 07:00 Intake Total 100 ml 700 ml Output Total 100 ml Balance 0 ml 700 ml NACHO PEMBERTON MD Jun 09, 2019 11:13
[2019-06-09 11:51] VITALS: BP 142/61
--- NOTE | 2019-06-09 13:16 | NUR ---
Discharge Note: ADEOLA CARTER 2 [facility] Discharge instructions and discharge home medications reviewed with Patient and a copy given. All questions have been answered and understanding verbalized. The following instructions and handouts were given: Falls and UTI Discontinued IV line Patient discharged to home with home health via wheelchair
== END 2019-06-09 13:19 | disposition home health service (06) | DRG 558 ==
LOC: ER 12:34 → 2 NORTH 15:28
PROVIDERS: ADMIT Internal Medicine; ATTEND Internal Medicine
PROC: 3E0U33Z Introduction of Anti-inflammatory into Joints, Percutaneous Approach (ICD-10-PCS; principal; 2019-06-07)
PROC: 3E0U3BZ Introduction of Anesthetic Agent into Joints, Percutaneous Approach (ICD-10-PCS; 2019-06-07)
DX: M75.101 Unspecified rotator cuff tear or rupture of right shoulder, not specified as traumatic (principal); N39.0 Urinary tract infection, site not specified; E87.1 Hypo-osmolality and hyponatremia; I47.1 Supraventricular tachycardia; I48.92 Unspecified atrial flutter; I50.32 Chronic diastolic (congestive) heart failure; C50.919 Malignant neoplasm of unspecified site of unspecified female breast; E78.00 Pure hypercholesterolemia, unspecified; E78.5 Hyperlipidemia, unspecified; E83.42 Hypomagnesemia; G62.9 Polyneuropathy, unspecified; I11.0 Hypertensive heart disease with heart failure; I20.9 Angina pectoris, unspecified; I48.0 Paroxysmal atrial fibrillation; K21.9 Gastro-esophageal reflux disease without esophagitis; M17.0 Bilateral primary osteoarthritis of knee; S46.911A Strain of unspecified muscle, fascia and tendon at shoulder and upper arm level, right arm, initial encounter; S46.912A Strain of unspecified muscle, fascia and tendon at shoulder and upper arm level, left arm, initial encounter; W01.0XXA Fall on same level from slipping, tripping and stumbling without subsequent striking against object, initial encounter; Z82.3 Family history of stroke; Z82.49 Family history of ischemic heart disease and other diseases of the circulatory system; Z85.3 Personal history of malignant neoplasm of breast; Z88.5 Allergy status to narcotic agent; Z90.710 Acquired absence of both cervix and uterus; F32.9 Major depressive disorder, single episode, unspecified; Y93.89 Activity, other specified; Y92.89 Other specified places as the place of occurrence of the external cause; Y99.8 Other external cause status
CPT/HCPCS: 36415; 70450; 71045; 73030; 80048; 80053; 80061; 81001; 82550; 82607; 83605; 83735; 83880; 84439; 84443; 84484; 85007; 85025; 85610; 85730; 87040; 87086; 87186; 90471; 90686; 93005; 93306; J0696; J1030; J2405; J3010; J3475; J3490; J7030; G0378